=== PATIENT | male | born 1945 | race Caucasian/White ===

== ENCOUNTER 2018-05-24 10:23 | Inpatient (IN) | payer MEDICARE, OTHER | END 2018-05-26 16:10 | disposition home or self-care (01) | LOC: ER 10:23 → ED HOLD 11:49 → ORTHO 4S 17:50 | DX: G90.8 Other disorders of autonomic nervous system (principal); Q21.1 Atrial septal defect; I95.9 Hypotension, unspecified; R56.9 Unspecified convulsions; E11.9 Type 2 diabetes mellitus without complications ==

== ENCOUNTER 2018-12-13 02:53 | Emergency (ER) | payer MEDICARE ==
[~2018-12-13] VITALS: Ht 188 cm; Wt 68.7 kg
[~2018-12-13 02:53] MED LIST: ASCO500C15 PO; FERR324T4 PO
--- NOTE | 2018-12-13 03:21 | NUR ---
WAYLON REYES (FRIEND) IS NAMED SHANEKA HE WILL PICK THE PATIENT UP WHEN/IF D/C HIS PHONE NUMBER IS [phone]
[2018-12-13 03:42] LABS: BASOPHILS # (AUTO) 0.1 X10'3 (0-0.2); BASOPHILS % (AUTO) 0.8 % (0-1); EOSINOPHILS # (AUTO) 0.2 X10'3 (0-0.9); EOSINOPHILS % (AUTO) 2.8 % (0-6); HEMATOCRIT 45.2 % (42.0-52.0); HEMOGLOBIN 15.1 g/dl (14.0-17.9); LYMPHOCYTES # (AUTO) 1.8 X10'3 (1.1-4.8); LYMPHOCYTES % (AUTO) 24.5 % (21-51); MEAN CORPUSCULAR HGB CONC 33.5 g/dL (33.0-36.5); MEAN CORPUSCULAR VOLUME 92.5 FL (78-98); MEAN PLATELET VOLUME 8.6 FL (7.4-10.4); MONOCYTES # (AUTO) 0.8 X10'3 (0-0.9); NEUTROPHILS # (AUTO) 4.5 X10'3 (1.8-7.7); NEUTROPHILS % (AUTO) 60.9 % (42-75); PLATELET COUNT 268 X10'3 (140-440); RED BLOOD COUNT 4.89 X10'6 (4.70-6.10); RED CELL DISTRIBUTION WIDTH 14.9 % (11.5-14.5); WHITE BLOOD COUNT 7.5 X10'3 (4.5-11.0)
[2018-12-13 03:44] LABS: PARTIAL THROMBOPLASTIN TIME 25 SECONDS (22-32)
[2018-12-13 03:46] LABS: ALANINE AMINOTRANSFERASE 29 U/L (12-78); ALBUMIN 3.6 G/DL (3.4-5.0); ALBUMIN/GLOBULIN RATIO 0.9 (1.1-1.5); ALKALINE PHOSPHATASE 81 IU/L (46-116); ANION GAP 8 (8-16); ASPARTATE AMINO TRANSFERASE 22 U/L (10-37); BILIRUBIN,TOTAL 0.4 MG/DL (0.1-1.0); BLOOD UREA NITROGEN 10 MG/DL (7-18); BUN/CREATININE RATIO 13.9 (5.4-32.0); CALCIUM 9.3 MG/DL (8.5-10.1); CHLORIDE 106 MMOL/L (99-107); CREATININE 0.72 MG/DL (0.60-1.10); GLUCOSE 113 MG/DL (70-104); POTASSIUM 3.7 MMOL/L (3.5-5.1); SODIUM 143 MMOL/L (135-145); TOTAL PROTEIN 7.8 G/DL (6.4-8.2); eGFR > 90 ML/MIN
--- NOTE | 2018-12-13 04:14 | NUR ---
PT NOW COMPLAINING OF RUQ PAIN, NO ABD HX THAT HE CAN REMEMBER, LIPASE ORDERED VIA PROTOCOL .
[2018-12-13 04:26] LABS: LIPASE 93 U/L (73-393)
[2018-12-13] MEDS ORDERED: ketorolac trometh. 30mg/ml inj. IV ONE (05:05)
[2018-12-13] MEDS ORDERED: morphine 4 MG/ML inj SYRINge IV ONE (05:05)
[2018-12-13 07:35] LABS: CLARITY,URINE CLEAR (Clear); COLOR,URINE YELLOW (Yellow); GLUCOSE, URINE NEGATIVE (Neg); KETONES,URINE NEGATIVE (Neg); LEUKOCYTE ESTERASE ,URINE NEGATIVE (Neg); NITRITES, URINE NEGATIVE (Neg); OCCULT BLOOD,URINE NEGATIVE (Neg); PROTEIN,URINE NEGATIVE (Neg)
[2018-12-13 07:37] LABS: UA COLLECTION TYPE CLN CATCH MIDSTREAM
[2018-12-13 07:45] LABS: URINE AMPHETAMINE SCREEN NEGATIVE (Neg); URINE BARBITUATE SCREEN NEGATIVE (Neg); URINE BENZODIAZEPINES SCREEN NEGATIVE (Neg); URINE CANNABINOID SCREEN NEGATIVE (Neg); URINE COCAINE SCREEN NEGATIVE (Neg); URINE METHADONE SCREEN NEGATIVE (Neg); URINE OPIATE SCREEN POSITIVE (Neg); URINE PHENCYCLIDINE SCREEN NEGATIVE (Neg)
[2018-12-13 10:10] VITALS: BP 129/74
== END 2018-12-13 10:12 | disposition home or self-care (01) ==
LOC: ER 02:54
DX: R10.11 Right upper quadrant pain (principal); R07.89 Other chest pain; Z86.73 Personal history of transient ischemic attack (TIA), and cerebral infarction without residual deficits; Z87.891 Personal history of nicotine dependence; Z79.899 Other long term (current) drug therapy
CPT/HCPCS: 36415; 71045; 74176; 80053; 80305; 81003; 83690; 84484; 85025; 85610; 85730; 96374; 96375; 99284; J1885; J2270; 93005

== ENCOUNTER 2020-12-09 09:38 | Emergency (ER) | payer MEDICARE, MEDICAID ==
[~2020-12-09] VITALS: Ht 185.4 cm; Wt 80.9 kg
[~2020-12-09 09:38] MED LIST changes: -ASCO500C15 PO; +ASCO500C18 PO
[2020-12-09 09:57] VITALS: BP 140/80
== END 2020-12-09 17:12 | disposition left against medical advice (07) ==
LOC: ER 09:41
DX: K59.00 Constipation, unspecified (principal); Z53.21 Procedure and treatment not carried out due to patient leaving prior to being seen by health care provider

== ENCOUNTER 2020-12-29 07:51 | Inpatient (IN) | payer MEDICARE, MEDICAID ==
[~2020-12-29] VITALS: Ht 190.5 cm; Wt 95.4 kg
[2020-12-29] MEDS ORDERED: adenosine 3mg/ml 2ml vial IV ONE (08:00)
[2020-12-29] MEDS ORDERED: sod chloride 0.9% 10ml flush syringe IV ONE ×2 (08:00)
[2020-12-29] MEDS ORDERED: epiNEPHrine 0.1mg/ml 10ml syringe ONE (08:00)
[2020-12-29] MEDS ORDERED: etomidate 2mg/ml inj. ONE (08:00)
[2020-12-29] MEDS ORDERED: metoprolol tartrate 1mg/ml inj IV ONE (08:00)
[2020-12-29] MEDS ORDERED: rocuronium 10mg/ml inj IV ONE (08:00)
[2020-12-29] MEDS ORDERED: acetaminophen 325mg tablet PO STA (09:57)
[2020-12-29] MEDS ORDERED: ALBUTEROL INHALER 1 PUFF/90 MCG INHALER IH PRN (10:00)
[2020-12-29] MEDS ORDERED: normal saline 1000ML IV soln IV ONE (10:00)
[2020-12-29] MEDS ORDERED: azithromycin/NS 500mg/250ml 250 ML IV ONE (10:00)
[2020-12-29] MEDS ORDERED: CefTRIAXone 2gm/D5W 50ml BAG 50 ML IV ONE (10:00)
[2020-12-29 10:29] LABS: BASOPHILS # (AUTO) 0.1 X10'3 (0-0.2); BASOPHILS % (AUTO) 1.2 % (0-1); EOSINOPHILS % (AUTO) 0.1 % (0-6); HEMATOCRIT 44.2 % (42.0-52.0); HEMOGLOBIN 15.4 g/dl (14.0-17.9); LYMPHOCYTES # (AUTO) 0.5 X10'3 (1.1-4.8); LYMPHOCYTES % (AUTO) 8.9 % (21-51); MEAN CORPUSCULAR HEMOGLOBIN 31.3 PG (27.0-31.0); MEAN CORPUSCULAR HGB CONC 34.8 g/dL (33.0-36.5); MEAN CORPUSCULAR VOLUME 90.1 FL (78-98); MEAN PLATELET VOLUME 8.5 FL (7.4-10.4); MONOCYTES # (AUTO) 0.4 X10'3 (0-0.9); MONOCYTES % (AUTO) 7.5 % (2-12); NEUTROPHILS # (AUTO) 4.4 X10'3 (1.8-7.7); NEUTROPHILS % (AUTO) 82.3 % (42-75); PLATELET COUNT 160 X10'3 (140-440); RED CELL DISTRIBUTION WIDTH 13.3 % (11.5-14.5); WHITE BLOOD COUNT 5.3 X10'3 (4.5-11.0)
[2020-12-29 10:45] LABS: ALANINE AMINOTRANSFERASE 69 U/L (12-78); ALBUMIN 2.8 G/DL (3.4-5.0); ALBUMIN/GLOBULIN RATIO 0.6 (1.1-1.5); ALKALINE PHOSPHATASE 79 IU/L (46-116); ANION GAP 12 (8-16); ASPARTATE AMINO TRANSFERASE 96 U/L (10-37); BILIRUBIN,TOTAL 0.6 MG/DL (0.1-1.0); BLOOD UREA NITROGEN 20 MG/DL (7-18); BUN/CREATININE RATIO 18.7 (5.4-32.0); C-REACTIVE PROTEIN 9.28 MG/DL (0.0-0.5); CALCIUM 8.1 MG/DL (8.5-10.1); CHLORIDE 98 MMOL/L (99-107); CREATININE 1.07 MG/DL (0.60-1.10); GLUCOSE 132 MG/DL (70-104); POTASSIUM 3.3 MMOL/L (3.5-5.1); SODIUM 136 MMOL/L (135-145); TOTAL CARBON DIOXIDE 26.4 MMOL/L (24-32); TOTAL PROTEIN 7.2 G/DL (6.4-8.2); eGFR 67 ML/MIN
[2020-12-29] MEDS ORDERED: REMDESIVIR INJ 200 MG in normal saline 100ml IV soln 60 ML IV ONE (11:20)
[2020-12-29] MEDS ORDERED: enoxaparin 100mg/ml syringe SUBCUT ONE (11:25)
[2020-12-29] MEDS ORDERED: iohexol 350MG/ML 100ml bottle IV ONE (11:32)
[2020-12-29 11:36] LABS: ABG BASE EXCESS -0.1 mmol/L (-2.0-2.0); ABG HCO3 22.3 mmol/L (22.0-26.0); ABG OXYGEN SATURATION 92.1 % (94-97); ABG PO2 (T) 62.1 mmHg (75.0-100.0); ALLEN'S TEST POSITIVE; FCOHb 0.9 % (0.0-3.9); FLOW 6 L/min; FMetHb 0.3 % (0.0-1.5); PATIENT TEMPERATURE 36.7; TOTAL HEMOGLOBIN 14.7 G/dl (14.0-18.0)
[2020-12-29] MEDS ORDERED: mag hydrox/Alum hydrox/simeth 30ml oral suspension PO PRN (12:35)
[2020-12-29] MEDS ORDERED: morphine 2 MG/ML inj. syringe IV PRN (12:35)
[2020-12-29] MEDS ORDERED: ondansetron/PF 4mg/2ml inj IV PRN (12:35)
[2020-12-29] MEDS ORDERED: magnesium hydroxide 30ml (MOM) UD suspension PO PRN (12:35)
[2020-12-29] MEDS ORDERED: acetaminophen 325mg tablet PO PRN (12:35)
[2020-12-29] MEDS ORDERED: NO HOME MEDS PO (14:11)
--- NOTE | 2020-12-29 14:22 | NUR ---
pt was standing in his doorway and had pulled out his IV. stated he wanted to go to the bathroom because he needed to have a bowel movement. pt was given a bedside commode and asked to stay in his room in order not to spread infections. pt agreed and stated he understood.
[2020-12-29] MEDS: dexamethasone inj 6 MG in normal saline 50ml IV soln 50 ML IV SCH ×2 (15:45→21:37)
[2020-12-29 16:08] LABS: UA COLLECTION TYPE URINAL
[2020-12-29 16:10] LABS: COLOR,URINE STRAW (Yellow)
[2020-12-29 16:11] LABS: CLARITY,URINE SLIGHTLY CLOUDY (Clear); GLUCOSE, URINE NEGATIVE (Neg); KETONES,URINE TRACE mg/dl (Neg); NITRITES, URINE NEGATIVE (Neg); OCCULT BLOOD,URINE TRACE-LYSED (Neg); PROTEIN,URINE TRACE mg/dl (Neg)
[2020-12-29 16:12] LABS: LEUKOCYTE ESTERASE ,URINE NEGATIVE (Neg); UROBILINOGEN,URINE 0.2 E.U/dL (0.2-1.0)
[2020-12-29 16:16] LABS: SQUAMOUS EPITHELIAL CELL,UR FEW /LPF (FEW)
[2020-12-29 16:17] LABS: BACTERIA,URINE FEW /HPF (Neg); RBC,URINE 0-2 /HPF (0-2); TRANSITIONAL EPI CELLS,URINE FEW /HPF; WBC,URINE 0-4 /HPF (0-4)
[2020-12-29 16:28] LABS: URINE AMPHETAMINE SCREEN POSITIVE (Neg); URINE BARBITUATE SCREEN NEGATIVE (Neg); URINE BENZODIAZEPINES SCREEN NEGATIVE (Neg); URINE CANNABINOID SCREEN NEGATIVE (Neg); URINE COCAINE SCREEN NEGATIVE (Neg); URINE METHADONE SCREEN NEGATIVE (Neg); URINE OPIATE SCREEN NEGATIVE (Neg); URINE PHENCYCLIDINE SCREEN NEGATIVE (Neg)
[2020-12-29] MEDS: normal saline 1000ml 1,000 ML IV SCH ×2 (16:30→22:35)
--- NOTE | 2020-12-29 17:51 | NUR ---
PT'S DAUGHTER INQUIRING ABOUT PT STATUS. INFORMED THAT PT IS STABLE, BEING ADMITTED TO THE FLOOR AND AWAITING A ROOM. PT'S DAUGHTER CONTACT INFORMATION: GEE Mendoza; Addendum: 12/29/20 at 1754 by SHREYAS PT HAS GIVEN PERMISSION TO GIVE HIS DAUGHTER, GEE Mendoza, INFORMATION REGARDING HIS STATUS.
[2020-12-29] MEDS: docusate sod 100mg capsule PO SCH (21:37)
[2020-12-29] MEDS: enoxaparin 30mg/0.3ml syringe SQ SCH (21:37)
[2020-12-29 22:58] VITALS: BP 104/66
[2020-12-30 06:00] VITALS: BP 113/68
--- NOTE | 2020-12-30 06:33 | NUR ---
Problems reprioritized. Patient report given, questions answered & plan of care reviewed with
--- NOTE | 2020-12-30 06:42 | NUR ---
Patient in room ORTHO 4020B. I have received report from KANDI ASHFORD and had the opportunity to ask questions and assume patient care.
[2020-12-30 08:05] LABS: BASOPHILS % (AUTO) 0.2 % (0-1); EOSINOPHILS % (AUTO) 0 % (0-6); HEMATOCRIT 41.1 % (42.0-52.0); HEMOGLOBIN 14.1 g/dl (14.0-17.9); LYMPHOCYTES # (AUTO) 0.5 X10'3 (1.1-4.8); LYMPHOCYTES % (AUTO) 11.1 % (21-51); MEAN CORPUSCULAR HGB CONC 34.2 g/dL (33.0-36.5); MEAN CORPUSCULAR VOLUME 90.7 FL (78-98); MEAN PLATELET VOLUME 8.9 FL (7.4-10.4); MONOCYTES # (AUTO) 0.3 X10'3 (0-0.9); NEUTROPHILS # (AUTO) 3.7 X10'3 (1.8-7.7); NEUTROPHILS % (AUTO) 81.7 % (42-75); PLATELET COUNT 167 X10'3 (140-440); RED BLOOD COUNT 4.53 X10'6 (4.70-6.10); RED CELL DISTRIBUTION WIDTH 13.5 % (11.5-14.5); WHITE BLOOD COUNT 4.6 X10'3 (4.5-11.0)
[2020-12-30 08:29] LABS: ALBUMIN 2.2 G/DL (3.4-5.0); ANION GAP 12 (8-16); BLOOD UREA NITROGEN 13 MG/DL (7-18); BUN/CREATININE RATIO 20.3 (5.4-32.0); CALCIUM 7.8 MG/DL (8.5-10.1); CHLORIDE 109 MMOL/L (99-107); CREATININE 0.64 MG/DL (0.60-1.10); GLUCOSE 134 MG/DL (70-104); POTASSIUM 3.3 MMOL/L (3.5-5.1); SODIUM 145 MMOL/L (135-145); TOTAL CARBON DIOXIDE 23.6 MMOL/L (24-32); eGFR > 90 ML/MIN
[2020-12-30] MEDS: docusate sod 100mg capsule PO SCH ×2 (09:17→19:35)
[2020-12-30] MEDS: dexamethasone inj 6 MG in normal saline 50ml IV soln 50 ML IV SCH ×2 (09:23→19:36)
[2020-12-30] MEDS: enoxaparin 30mg/0.3ml syringe SQ SCH (09:28)
[2020-12-30] MEDS: REMDESIVIR 100 MG in NS 100ml IVPB IV SCH (09:31)
[2020-12-30 10:00] VITALS: BP 95/45
[2020-12-30] MEDS: normal saline 1000ml 1,000 ML IV SCH ×2 (11:01→19:37)
--- NOTE | 2020-12-30 13:31 | NUR ---
Malnutrition Consult: Pt admit DX COVID-19 bilateral PNA positive for meth per EMR. Pt reports 14-23 lb wt loss however is poor historian per MD note. Pt appears WD/WN per ER note, has no edema, no significant weakness noted, and PO 50% first heart healthy meal this AM. Pt lacks current wt this admit as well as prior wt hx. Does not meet minimum malnutrition criteria at this time; will monitor for nutrition intervention needs this admit. Addendum: 12/30/20 at [address] Amended: Links added.
[2020-12-30 14:00] VITALS: BP 96/62
[2020-12-30] MEDS ORDERED: potassium Cl 20 mEq SR tablet PO PRN (15:35)
[2020-12-30] MEDS ORDERED: potassium Cl 40MEQ/1/2NS 520ml 520 ML IV PRN ×2 (15:35)
[2020-12-30] MEDS: potassium Cl 20 mEq SR tablet PO PRN ×2 (17:12→21:53)
--- NOTE | 2020-12-30 17:35 | NUR ---
Page Sent PAGER ID: [phone] MESSAGE: TONYA [id number]: [id number] HUONG PIENDA...PTS U/S REPORT IS READY
[2020-12-30 18:00] VITALS: BP 101/60
--- NOTE | 2020-12-30 18:38 | NUR ---
Problems reprioritized. Patient report given, questions answered & plan of care reviewed with KANDI SANTOS.
[2020-12-30] MEDS: enoxaparin 80mg/0.8ml syringe SUBCUT SCH (19:36)
[2020-12-30] MEDS: K and/or MAG REPLACEMENT MC SCH (20:00)
[2020-12-30 22:00] VITALS: BP 96/45
[2020-12-31 02:00] VITALS: BP 100/57
[2020-12-31] MEDS: potassium Cl 20 mEq SR tablet PO PRN ×2 (02:21→12:25)
[2020-12-31] MEDS: normal saline 1000ml 1,000 ML IV SCH ×2 (04:40→08:35)
[2020-12-31 06:00] VITALS: BP 109/61
--- NOTE | 2020-12-31 06:49 | NUR ---
Patient in room ORTHO 4020. I have received report from Immanuel CHAU and had the opportunity to ask questions and assume patient care.
[2020-12-31] MEDS: K and/or MAG REPLACEMENT MC SCH ×2 (08:00→20:00)
--- NOTE | 2020-12-31 08:16 | NUR ---
PAGER ID: [phone] MESSAGE: re: [id number], Nathan Mitchell Pt continuously taking O2 off desats down to 67-80% despite reeducation, and trying to get OOB and pull at lines. May I have order for sitter. Thank you, Shaina [phone] electric plater aware. Michel Lovett aware. Will continue to monitor.
[2020-12-31] MEDS: docusate sod 100mg capsule PO SCH ×2 (08:32→20:19)
[2020-12-31] MEDS: enoxaparin 80mg/0.8ml syringe SUBCUT SCH ×2 (08:33→20:19)
[2020-12-31] MEDS: dexamethasone inj 6 MG in normal saline 50ml IV soln 50 ML IV SCH ×2 (08:33→20:19)
[2020-12-31 08:35] LABS: BASOPHILS % (AUTO) 0.1 % (0-1); EOSINOPHILS % (AUTO) 0 % (0-6); HEMOGLOBIN 13.6 g/dl (14.0-17.9); LYMPHOCYTES # (AUTO) 0.6 X10'3 (1.1-4.8); LYMPHOCYTES % (AUTO) 6.9 % (21-51); MEAN CORPUSCULAR HEMOGLOBIN 31.3 PG (27.0-31.0); MEAN CORPUSCULAR HGB CONC 34.9 g/dL (33.0-36.5); MEAN CORPUSCULAR VOLUME 89.7 FL (78-98); MONOCYTES # (AUTO) 0.6 X10'3 (0-0.9); MONOCYTES % (AUTO) 6.4 % (2-12); NEUTROPHILS # (AUTO) 7.6 X10'3 (1.8-7.7); NEUTROPHILS % (AUTO) 86.6 % (42-75); PLATELET COUNT 222 X10'3 (140-440); RED BLOOD COUNT 4.35 X10'6 (4.70-6.10); RED CELL DISTRIBUTION WIDTH 13.7 % (11.5-14.5); WHITE BLOOD COUNT 8.8 X10'3 (4.5-11.0)
[2020-12-31 09:03] LABS: ANION GAP 12 (8-16); BLOOD UREA NITROGEN 12 MG/DL (7-18); BUN/CREATININE RATIO 22.6 (5.4-32.0); CALCIUM 7.5 MG/DL (8.5-10.1); CHLORIDE 111 MMOL/L (99-107); CREATININE 0.53 MG/DL (0.60-1.10); GLUCOSE 144 MG/DL (70-104); POTASSIUM 3.3 MMOL/L (3.5-5.1); SODIUM 146 MMOL/L (135-145); TOTAL CARBON DIOXIDE 22.7 MMOL/L (24-32); eGFR > 90 ML/MIN
[2020-12-31] MEDS: REMDESIVIR 100 MG in NS 100ml IVPB IV SCH (09:33)
[2020-12-31 10:00] VITALS: BP 110/42
--- NOTE | 2020-12-31 12:35 | NUR ---
Pt refusing to take PO Potassium for replacement of 3.3 K+. Will replace per PIV. Will continue to monitor.
--- NOTE | 2020-12-31 14:57 | NUR ---
Phoned pharmacy, still waiting for IV K+ for replacement. They will send up. Will continue to monitor.
[2020-12-31 18:00] VITALS: BP 101/56
--- NOTE | 2020-12-31 18:38 | NUR ---
Problems reprioritized. Patient report given, questions answered & plan of care reviewed with Oliva CHAU.
--- NOTE | 2020-12-31 18:40 | NUR ---
Patient in room ORTHO 4020. I have received report from KANDI MACK and had the opportunity to ask questions and assume patient care.
[2020-12-31 22:00] VITALS: BP 103/50
[2021-01-01] MEDS: normal saline 1000ml 1,000 ML IV SCH ×3 (00:35→14:34)
[2021-01-01 02:00] VITALS: BP 101/57
[2021-01-01 06:30] VITALS: BP 110/47
--- NOTE | 2021-01-01 06:31 | NUR ---
Problems reprioritized. Patient report given, questions answered & plan of care reviewed with lupe Alvarenga.
[2021-01-01 07:39] LABS: GLUCOSE 144 MG/DL (70-104); POTASSIUM 3.6 MMOL/L (3.5-5.1); SODIUM 147 MMOL/L (135-145)
[2021-01-01 07:40] LABS: ALBUMIN 2.2 G/DL (3.4-5.0); ANION GAP 7 (8-16); BLOOD UREA NITROGEN 13 MG/DL (7-18); BUN/CREATININE RATIO 21.7 (5.4-32.0); CALCIUM 7.5 MG/DL (8.5-10.1); CHLORIDE 111 MMOL/L (99-107); TOTAL CARBON DIOXIDE 28.7 MMOL/L (24-32); eGFR > 90 ML/MIN
[2021-01-01] MEDS: enoxaparin 80mg/0.8ml syringe SUBCUT SCH ×2 (07:42→20:55)
[2021-01-01] MEDS: docusate sod 100mg capsule PO SCH ×2 (07:42→20:00)
[2021-01-01] MEDS: dexamethasone inj 6 MG in normal saline 50ml IV soln 50 ML IV SCH ×2 (07:43→20:55)
[2021-01-01 07:44] LABS: BASOPHILS % (AUTO) 0 % (0-1); EOSINOPHILS % (AUTO) 0 % (0-6); HEMATOCRIT 43.5 % (42.0-52.0); HEMOGLOBIN 14.4 g/dl (14.0-17.9); LYMPHOCYTES # (AUTO) 0.4 X10'3 (1.1-4.8); LYMPHOCYTES % (AUTO) 3.4 % (21-51); MEAN CORPUSCULAR HEMOGLOBIN 30.7 PG (27.0-31.0); MEAN CORPUSCULAR HGB CONC 33.1 g/dL (33.0-36.5); MEAN CORPUSCULAR VOLUME 92.7 FL (78-98); MEAN PLATELET VOLUME 8.8 FL (7.4-10.4); MONOCYTES # (AUTO) 0.7 X10'3 (0-0.9); NEUTROPHILS # (AUTO) 10.3 X10'3 (1.8-7.7); NEUTROPHILS % (AUTO) 90.6 % (42-75); PLATELET COUNT 256 X10'3 (140-440); RED BLOOD COUNT 4.69 X10'6 (4.70-6.10); RED CELL DISTRIBUTION WIDTH 13.7 % (11.5-14.5); WHITE BLOOD COUNT 11.4 X10'3 (4.5-11.0)
[2021-01-01] MEDS: K and/or MAG REPLACEMENT MC SCH ×2 (08:00→19:14)
--- NOTE | 2021-01-01 08:03 | NUR ---
PAGER ID: [phone] MESSAGE: [id number] Ismael Mitchell: very agitated/anxious keeps trying to pull o2 off. has no anxiety meds ordered..would you like me to give anything? thanks! shayna [phone]
[2021-01-01] MEDS: LORazepam 2 mg/ml vial IV PRN ×4 (08:40→20:33)
[2021-01-01] MEDS: REMDESIVIR 100 MG in NS 100ml IVPB IV SCH (08:43)
[2021-01-01 09:47] VITALS: BP 125/65
[2021-01-01] MEDS: morphine 2 MG/ML inj. syringe IV PRN ×2 (14:33→20:44)
[2021-01-01 15:00] VITALS: BP 120/68
--- NOTE | 2021-01-01 15:06 | NUR ---
PAGER ID: [phone] MESSAGE: [id number] Ismael Mitchell: patient still very agitated. keeps pulling o2 off and trying to get out of bed despite sitter at bedside. would you like restraints temporarily until he calms? thanks! shayna [phone]
[2021-01-01 18:00] VITALS: BP 110/62
--- NOTE | 2021-01-01 18:21 | NUR ---
Problems reprioritized. Patient report given, questions answered & plan of care reviewed with KANDI Cook.
--- NOTE | 2021-01-01 18:22 | NUR ---
Patient in room ORTHO 4020. I have received report from Cate CHAU and had the opportunity to ask questions and assume patient care.
--- NOTE | 2021-01-01 20:48 | NUR ---
Pt became combative & trying to pull off his oxygen mask, pt's sat in the 70's. Ativan & morphine were given. Called to Dr. Tay for all extremities restraint order.
--- NOTE | 2021-01-01 20:50 | NUR ---
had been called because pt. did not calmed down after Ativan 0.5 and Morphine 2 mg. gave order for Haldol 2mg.one time order.We will continue with pt. care.
[2021-01-01] MEDS ORDERED: haloperidol lactate 5mg/ml inj IM ONE (20:55)
[2021-01-01 22:00] VITALS: BP 115/62
[2021-01-02] VITALS (8 sets, daily range): BP systolic 71–131; BP diastolic 43–75
[2021-01-02] MEDS: LORazepam 2 mg/ml vial IV PRN ×6 (00:04→18:49)
[2021-01-02] MEDS: normal saline 1000ml 1,000 ML IV SCH ×3 (00:29→19:45)
[2021-01-02] MEDS: morphine 2 MG/ML inj. syringe IV PRN ×4 (00:30→15:11)
--- NOTE | 2021-01-02 03:10 | NUR ---
Call to Dr. Tay for an order of Ativan 1ml q1h.
[2021-01-02] MEDS ORDERED: LORazepam 2 mg/ml vial IV PRN ×2 (03:15→04:15)
--- NOTE | 2021-01-02 03:30 | NUR ---
Called a rapid response regarding to pt's sat of 60%.
--- NOTE | 2021-01-02 04:44 | NUR ---
Pt is currently resting comfortably. Bipap/cpap setting 100% 40L
--- NOTE | 2021-01-02 06:30 | NUR ---
Patient in room ORTHO 4020. I have received report from KANDI Cook and had the opportunity to ask questions and assume patient care.
--- NOTE | 2021-01-02 06:40 | NUR ---
Problems reprioritized. Patient report given, questions answered & plan of care reviewed with Sara RN at bedside.
[2021-01-02] MEDS: REMDESIVIR 100 MG in NS 100ml IVPB IV SCH (07:48)
[2021-01-02] MEDS: dexamethasone inj 6 MG in normal saline 50ml IV soln 50 ML IV SCH (07:48)
[2021-01-02] MEDS: enoxaparin 80mg/0.8ml syringe SUBCUT SCH ×2 (07:49→20:00)
[2021-01-02] MEDS: docusate sod 100mg capsule PO SCH ×2 (07:49→20:00)
[2021-01-02] MEDS ORDERED: bisacodyl 10mg suppository rectal RC PRN (07:50)
[2021-01-02] MEDS: K and/or MAG REPLACEMENT MC SCH ×2 (08:00→20:00)
[2021-01-02 08:01] LABS: BASOPHILS % (AUTO) 0.1 % (0-1); EOSINOPHILS % (AUTO) 0 % (0-6); HEMATOCRIT 43.9 % (42.0-52.0); HEMOGLOBIN 14.3 g/dl (14.0-17.9); LYMPHOCYTES # (AUTO) 0.5 X10'3 (1.1-4.8); LYMPHOCYTES % (AUTO) 3.7 % (21-51); MEAN CORPUSCULAR HEMOGLOBIN 30.4 PG (27.0-31.0); MEAN CORPUSCULAR HGB CONC 32.6 g/dL (33.0-36.5); MEAN PLATELET VOLUME 8.5 FL (7.4-10.4); MONOCYTES # (AUTO) 0.7 X10'3 (0-0.9); MONOCYTES % (AUTO) 5.8 % (2-12); NEUTROPHILS # (AUTO) 11.4 X10'3 (1.8-7.7); NEUTROPHILS % (AUTO) 90.4 % (42-75); PLATELET COUNT 252 X10'3 (140-440); RED BLOOD COUNT 4.72 X10'6 (4.70-6.10); RED CELL DISTRIBUTION WIDTH 13.2 % (11.5-14.5); WHITE BLOOD COUNT 12.6 X10'3 (4.5-11.0)
[2021-01-02 08:22] LABS: ALBUMIN 2.3 G/DL (3.4-5.0); ANION GAP 12 (8-16); BLOOD UREA NITROGEN 12 MG/DL (7-18); BUN/CREATININE RATIO 21.1 (5.4-32.0); C-REACTIVE PROTEIN 2.87 MG/DL (0.0-0.5); CALCIUM 7.6 MG/DL (8.5-10.1); CHLORIDE 110 MMOL/L (99-107); CREATININE 0.57 MG/DL (0.60-1.10); GLUCOSE 106 MG/DL (70-104); POTASSIUM 3.6 MMOL/L (3.5-5.1); SODIUM 149 MMOL/L (135-145); TOTAL CARBON DIOXIDE 26.9 MMOL/L (24-32); eGFR > 90 ML/MIN
[2021-01-02] MEDS: nystatin 15 GM powder TP SCH ×2 (09:27→21:56)
--- NOTE | 2021-01-02 13:45 | NUR ---
Initial: Pt admit for acute respiratory failure with hypoxia and COVID-19 bilat PNA. Pt initially on a heart healthy diet and eating relatively well with average 64% PO intake the first six meals however average PO intake throughout LOS is 41%, not meeting estimated nutrient needs. Pt s/p BSS 01/[address] recs pureed food with thin liquids and pt with 25-50% PO intake following texture modification. Recommend Ensure Enlive TIDWM to optimize nutrient intake, to be sent pending physician approval in EMR. Noted patient started on NS at 100 mL/hr on 12/29 and patients serum Na continues to trend up, currently elevated at 149 MMOL/L. Recommend discontinuing NS in view of trend in serum Na, d/w RN. LBM 12/30, receiving routine bowel care and received PRN Dulcolax suppository today. Will continue to follow closely and monitor need for further nutrition intervention. Recommendations: 1) Continue pureed food with thin liquids per ST recs; consider discontinuing heart healthy diet and liberalizing to regular diet in view of poor PO intake 2) Ensure Enlive TIDWM, pending physician approval in EMR 3) Routine bowel care 4) Scaled weight this admit; weekly scaled weights thereafter Addendum: 01/02/21 at [address] Amended: Links added.
[2021-01-02 15:59] LABS: ABG BASE EXCESS 0.2 mmol/L (-2.0-2.0); ABG HCO3 22.4 mmol/L (22.0-26.0); ABG PCO2 (T) 29.8 mmHg (35.0-48.0); ABG PO2 (T) 49.3 mmHg (75.0-100.0); ALLEN'S TEST POSITIVE; FCOHb 0.6 % (0.0-3.9); FMetHb 0.3 % (0.0-1.5); FO2Hb 86.2 % (94-97); RESPIRATORY RATE 16 b/min; TOTAL HEMOGLOBIN 14.6 G/dl (14.0-18.0)
[2021-01-02] MEDS ORDERED: methylPREDNISolone sod succ 125mg/2ml vial IV ONE (16:15)
[2021-01-02 17:46] LABS: ABG BASE EXCESS -0.3 mmol/L (-2.0-2.0); ABG HCO3 21.9 mmol/L (22.0-26.0); ABG OXYGEN SATURATION 87.4 % (94-97); ABG PO2 (T) 51.5 mmHg (75.0-100.0); ALLEN'S TEST POSITIVE; FCOHb 0.6 % (0.0-3.9); FMetHb 0.3 % (0.0-1.5); FO2Hb 86.6 % (94-97); PATIENT TEMPERATURE 36.8; RESPIRATORY RATE 16 b/min; TOTAL HEMOGLOBIN 14.3 G/dl (14.0-18.0)
[2021-01-02] MEDS: lactose-reduced food (Ensure Enlive) - 237ml bottle PO SCH (18:00)
--- NOTE | 2021-01-02 18:30 | NUR ---
Problems reprioritized. Patient report given, questions answered & plan of care reviewed with KANDI Caal.
[2021-01-02] MEDS ORDERED: midazolam 1 mg/ML 2ml injection ONE (19:04)
--- NOTE | 2021-01-02 19:04 | NUR ---
ASSUMED CARE OF PATIENT WITH VERBAL REPORT FROM CASS RN. PATIENT TO BE TRANSFERRED TO ICU AFTER SHIFT CHANGE RAPID WAS CALLED PRIOR TO END OF EARLY SHIFT. 1845 PATIENT IN DISTRESS, RESP RATE AT 42, PATIENT THRASHING IN BED, ATIVAN 2MG GIVEN IVP AND PATIENT SLOWLY REGAINED RESP RATE OF 31 AND SATS UP FROM [address] TRUJILLO HERE AND WANTS PATIENT TRANSFERRED IMMEDIATELY, METAL CASTING TRADES WORKER. HERE, PATIENT TRANSFERRED WITH BELONGINGS AT 1900. CLOTHING ITEMS, WALLET AND CELLPHONE WITH PATIENT.
--- NOTE | 2021-01-02 19:15 | NUR ---
Problems reprioritized. Patient report given, questions answered & plan of care reviewed with JOLLY Zhong RN.
[2021-01-02] MEDS ORDERED: acetaminophen 325mg tablet PO PRN ×3 (19:20→19:45)
[2021-01-02] MEDS ORDERED: morphine 4 MG/ML inj SYRINge IV PRN (19:20)
[2021-01-02] MEDS ORDERED: LIDOcaine 2% 10ml TOPICAL JELLY (Urojet) TP ONE ×2 (19:20→19:45)
[2021-01-02] MEDS ORDERED: morphine 2 MG/ML inj. syringe IV PRN (19:20)
[2021-01-02] MEDS ORDERED: magnesium 2GM in 50ml NS 50 ML IV PRN (19:45)
[2021-01-02] MEDS ORDERED: sodium phosphate inj. 15 MMOL in dextrose 5%-water 250 ML IV PRN (19:45)
[2021-01-02] MEDS ORDERED: magnesium Cl slow-release 64mg tablet PO PRN (19:45)
[2021-01-02] MEDS ORDERED: ipratropium/albuterol 3ml nebule NEB PRN (19:45)
[2021-01-02] MEDS ORDERED: ondansetron/PF 4mg/2ml inj IV PRN (19:45)
[2021-01-02] MEDS ORDERED: magnesium hydroxide 30ml (MOM) UD suspension PO PRN (19:45)
[2021-01-02] MEDS ORDERED: magnesium 4gm in 100ml NS 100 ML IV PRN (19:45)
[2021-01-02] MEDS ORDERED: sodium phosphate inj. 30 MMOL in dextrose 5%-water 250 ML IV PRN (19:45)
[2021-01-02] MEDS ORDERED: Neutra Phos packet PO PRN (19:45)
[2021-01-02] MEDS ORDERED: rocuronium 10mg/ml inj IV ONE (19:55)
[2021-01-02] MEDS ORDERED: etomidate 2mg/ml inj. IV ONE (19:55)
[2021-01-02] MEDS: methylPREDNISolone sod succ/PF 40mg inj. IV SCH (20:00)
[2021-01-02] MEDS ORDERED: vancomycin/NS 1 GM ADD-VANTAGE 250 ML IV SCH (20:15)
[2021-01-02] MEDS: propofol 1000mg/100ml bottle 100 ML IV SCH (20:18)
[2021-01-02] MEDS: FENTANYL-0.9 % NACL/PF 100 ML IV SCH (20:19)
[2021-01-02 20:24] LABS: LACTIC SEPSIS 1.8 MMOL/L (0.4-2.0)
[2021-01-02 20:46] LABS: ABG BASE EXCESS -1.8 mmol/L (-2.0-2.0); ABG HCO3 23.9 mmol/L (22.0-26.0); ABG OXYGEN SATURATION 98.6 % (94-97); ABG PCO2 (T) 43.7 mmHg (35.0-48.0); ABG PO2 (T) 151.7 mmHg (75.0-100.0); ALLEN'S TEST POSITIVE; FCOHb 0.1 % (0.0-3.9); FMetHb 0.1 % (0.0-1.5); FO2Hb 98.4 % (94-97); PEEP 12 cm H2O; RESPIRATORY RATE 16 b/min; TIDAL VOLUME 450 mL; TOTAL HEMOGLOBIN 14.5 G/dl (14.0-18.0)
[2021-01-02] MEDS ORDERED: sennosides/docusate sodium tablet PO SCH (21:00)
[2021-01-02] MEDS ORDERED: NORepinephrine 8mg/ 250ml NS 250 ML IV ONE (21:56)
[2021-01-03] VITALS (24 sets, daily range): BP systolic 68–146; BP diastolic 31–91
[2021-01-03] MEDS: FENTANYL-0.9 % NACL/PF 100 ML IV SCH ×6 (00:38→20:48)
[2021-01-03] MEDS: propofol 1000mg/100ml bottle 100 ML IV SCH ×4 (00:53→22:42)
[2021-01-03] MEDS: methylPREDNISolone sod succ/PF 40mg inj. IV SCH ×4 (02:00→20:49)
[2021-01-03 03:48] LABS: ABG BASE EXCESS -2.1 mmol/L (-2.0-2.0); ABG HCO3 23.6 mmol/L (22.0-26.0); ABG OXYGEN SATURATION 96.7 % (94-97); ABG PCO2 (T) 43.8 mmHg (35.0-48.0); ABG PO2 (T) 97.5 mmHg (75.0-100.0); FCOHb 0.5 % (0.0-3.9); FO2Hb 96.2 % (94-97); PATIENT TEMPERATURE 36.9; PEEP 12 cm H2O; RESPIRATORY RATE 16 b/min; TIDAL VOLUME 450 mL; TOTAL HEMOGLOBIN 14.4 G/dl (14.0-18.0)
[2021-01-03 04:06] LABS: BASOPHILS % (AUTO) 0.2 % (0-1); EOSINOPHILS % (AUTO) 0 % (0-6); HEMOGLOBIN 13.5 g/dl (14.0-17.9); LYMPHOCYTES # (AUTO) 0.4 X10'3 (1.1-4.8); LYMPHOCYTES % (AUTO) 2.4 % (21-51); MEAN CORPUSCULAR HEMOGLOBIN 30.3 PG (27.0-31.0); MEAN CORPUSCULAR HGB CONC 32.3 g/dL (33.0-36.5); MEAN CORPUSCULAR VOLUME 93.9 FL (78-98); MEAN PLATELET VOLUME 9.6 FL (7.4-10.4); MONOCYTES # (AUTO) 0.7 X10'3 (0-0.9); MONOCYTES % (AUTO) 4.3 % (2-12); NEUTROPHILS # (AUTO) 15.8 X10'3 (1.8-7.7); NEUTROPHILS % (AUTO) 93.1 % (42-75); PLATELET COUNT 237 X10'3 (140-440); RED BLOOD COUNT 4.47 X10'6 (4.70-6.10); RED CELL DISTRIBUTION WIDTH 13.9 % (11.5-14.5)
[2021-01-03 04:18] LABS: PARTIAL THROMBOPLASTIN TIME 29 SECONDS (22-32)
[2021-01-03 04:27] LABS: GLUCOSE 162 MG/DL (70-104); SODIUM 152 MMOL/L (135-145)
[2021-01-03 04:28] LABS: ALANINE AMINOTRANSFERASE 74 U/L (12-78); ALBUMIN/GLOBULIN RATIO 0.6 (1.1-1.5); ALKALINE PHOSPHATASE 60 IU/L (46-116); ANION GAP 12 (8-16); ASPARTATE AMINO TRANSFERASE 54 U/L (10-37); BLOOD UREA NITROGEN 16 MG/DL (7-18); BUN/CREATININE RATIO 25.4 (5.4-32.0); C-REACTIVE PROTEIN 7.75 MG/DL (0.0-0.5); CALCIUM 7.6 MG/DL (8.5-10.1); CHLORIDE 114 MMOL/L (99-107); CREATININE 0.63 MG/DL (0.60-1.10); MAGNESIUM 2.1 MG/DL (1.5-2.4); PHOSPHORUS 4.2 MG/DL (2.3-4.5); POTASSIUM 3.4 MMOL/L (3.5-5.1); TOTAL CARBON DIOXIDE 26.2 MMOL/L (24-32); TOTAL PROTEIN 5.6 G/DL (6.4-8.2); TRIGLYCERIDES 59 MG/DL (20-135); eGFR > 90 ML/MIN
[2021-01-03 04:50] LABS: D-DIMER 3.99 MG/L FEU (0-0.50)
[2021-01-03] MEDS: pantoprazole 40 MG vial IV SCH (07:38)
[2021-01-03] MEDS: normal saline 1000ml 1,000 ML IV SCH ×2 (07:39→22:25)
[2021-01-03] MEDS: enoxaparin 80mg/0.8ml syringe SUBCUT SCH ×2 (07:39→20:53)
[2021-01-03] MEDS: nystatin 15 GM powder TP SCH ×2 (07:39→20:53)
[2021-01-03] MEDS: cefepime 1GM in D5W 50mL 50 ML IV SCH ×3 (07:39→15:55)
[2021-01-03] MEDS: docusate sod 100mg capsule PO SCH (07:40)
[2021-01-03] MEDS: K and/or MAG REPLACEMENT MC SCH (08:00)
[2021-01-03] MEDS: lactose-reduced food (Ensure Enlive) - 237ml bottle PO SCH (08:00)
[2021-01-03] MEDS: vancomycin/NS 1 GM ADD-VANTAGE 250 ML X 1 DOSE IV SCH ×2 (08:14→20:50)
[2021-01-03] MEDS ORDERED: potassium Cl 20mEq/100mL bag 100 ML IV ONE (08:23)
[2021-01-03] MEDS ORDERED: magnesium 1 GM/2 ML inj ONE (08:23)
[2021-01-03] MEDS ORDERED: metoprolol tartrate 1mg/ml inj IV STA (10:24)
[2021-01-03] MEDS ORDERED: adenosine 3mg/ml 2ml vial IV ONE ×2 (10:25)
--- NOTE | 2021-01-03 10:29 | NUR ---
at approx 0821 pt went into SVT in the rate of 220's. md at bedside. pt medicated with 6mg adenosine with no effect. 12 mg given with no effect then a second 12 mg of adenosine given with no effect. metoprolol 5 mg ordered and given heart dropped to 130's. pt maintained a blood pressure throught incident. svt lasted approx 10 minutes.
--- NOTE | 2021-01-03 11:02 | NUR ---
TF consult: Pt required intubation d/t respiratory failure per MD note. Of note pt currently receiving Propofol at 17.182 mL/hr providing roughly 453 kcal/day. TF recommendations were calculated to meet estimated nutrient needs with current Propofol rate so recommendations may need to be adjusted further if Propofol rate to change. IBW was used to calculate estimated nutrient needs as current documented wt isn't scaled. Noted pt with a low Lino of 12, no edema or wounds per physical assessment. LBM 01/02, with routine bowel care available with additional PRN bowel care available. Will continue to follow closely. Recommendations: 1) Continuous TF via OGT using Vital AF with 75 mL/hr goal rate to provide 1800 mL total volume/day, 2160 kcal, 135 g protein, and 1460 mL water. Will meet patient's estimated nutrient needs with Propofol at 17.182 mL/hr 2) Monitor for scaled weight and adjustments in Propofol rate and adjust TF recommendations as appropriate 3) Additional 200 mL water flush Q4H; monitor serum Na and need to adjust 4) Prealbumin q Tuesday/ 5) Daily scaled weights 6) Routine bowel care 7) BSS with ST prior to PO diet advancement following extubation; previously on pureed food with thin liquids per ST 01/01; recommend regular diet in view of poor PO intake hx Addendum: 01/03/21 at [address] Amended: Links added.
[2021-01-03] MEDS ORDERED: NORepinephrine 8mg/ 250ml NS 250 ML IV ONE (11:11)
--- NOTE | 2021-01-03 12:48 | NUR ---
ng placed on first attempt. positive gastric contents on aspiration and air instillation
[2021-01-03] MEDS ORDERED: mag hydrox/Alum hydrox/simeth 30ml oral suspension OGT PRN (14:20)
[2021-01-03] MEDS ORDERED: Neutra Phos packet OGT PRN (14:21)
[2021-01-03] MEDS ORDERED: magnesium hydroxide 30ml (MOM) UD suspension OGT PRN (14:21)
[2021-01-03] MEDS ORDERED: dextrose ORAL solution 15 GM/59 ML bottle PO PRN ×2 (14:30)
[2021-01-03] MEDS ORDERED: MESSAGE TO PHARMACY PO ONE (14:30)
[2021-01-03] MEDS ORDERED: dextrose 50%-water 50ml dispensing syringe IV PRN ×2 (14:30)
[2021-01-03] MEDS ORDERED: glucagon, human recombinant 1mg kit SUBCUT PRN (14:30)
[2021-01-03 15:10] LABS: HEMOGLOBIN A1C 6.5 % (4.5-6.2)
[2021-01-03] MEDS: NORepinephrine 8mg/ 250ml NS 250 ML IV SCH (18:04)
[2021-01-03] MEDS: docusate sodium 100mg/10ml UD cup OGT SCH (20:49)
[2021-01-03] MEDS: sennosides/docusate sodium tablet OGT SCH (20:49)
[2021-01-03] MEDS: mineral oil/petrolatum ophthal oint EACHEYE SCH (20:53)
[2021-01-03] MEDS: lactobacillus rhamnosus 10,000 MMU CELLS/CAPSULE OGT SCH (20:53)
[2021-01-03] MEDS: insulin glargine (Lantus) pen - multi-dose SQ SCH (22:19)
[2021-01-03] MEDS: insulin regular, human U-100 3ml vial - multi-dose SQ SCH (22:22)
[2021-01-04] VITALS (24 sets, daily range): BP systolic 88–118; BP diastolic 56–73
[2021-01-04] MEDS: FENTANYL-0.9 % NACL/PF 100 ML IV SCH ×3 (01:01→16:15)
[2021-01-04] MEDS: methylPREDNISolone sod succ/PF 40mg inj. IV SCH ×4 (01:50→20:39)
[2021-01-04] MEDS: mineral oil/petrolatum ophthal oint EACHEYE SCH ×4 (01:50→20:39)
[2021-01-04 03:05] LABS: PARTIAL THROMBOPLASTIN TIME 27 SECONDS (22-32)
[2021-01-04 03:14] LABS: ALBUMIN 1.9 G/DL (3.4-5.0); ALBUMIN/GLOBULIN RATIO 0.5 (1.1-1.5); ANION GAP 7 (8-16); BILIRUBIN,TOTAL 0.5 MG/DL (0.1-1.0); BLOOD UREA NITROGEN 17 MG/DL (7-18); BUN/CREATININE RATIO 22.4 (5.4-32.0); CALCIUM 7.9 MG/DL (8.5-10.1); CHLORIDE 116 MMOL/L (99-107); CREATININE 0.76 MG/DL (0.60-1.10); GLUCOSE 275 MG/DL (70-104); MAGNESIUM 2.3 MG/DL (1.5-2.4); PHOSPHORUS 2.9 MG/DL (2.3-4.5); SODIUM 152 MMOL/L (135-145); TOTAL CARBON DIOXIDE 29.3 MMOL/L (24-32); TOTAL PROTEIN 5.8 G/DL (6.4-8.2); eGFR > 90 ML/MIN
[2021-01-04 03:15] LABS: ALANINE AMINOTRANSFERASE 61 U/L (12-78); ALKALINE PHOSPHATASE 55 IU/L (46-116); ASPARTATE AMINO TRANSFERASE 22 U/L (10-37)
[2021-01-04] MEDS: insulin regular, human U-100 3ml vial - multi-dose SQ SCH ×4 (03:36→21:01)
[2021-01-04 04:16] LABS: ABG BASE EXCESS 2.5 mmol/L (-2.0-2.0); ABG HCO3 30.1 mmol/L (22.0-26.0); ABG OXYGEN SATURATION 95.4 % (94-97); ABG PCO2 (T) 57.7 mmHg (35.0-48.0); ABG PO2 (T) 78.9 mmHg (75.0-100.0); ALLEN'S TEST Modified; FCOHb 0.3 % (0.0-3.9); FO2Hb 95.1 % (94-97); PATIENT TEMPERATURE 36.5; PEEP 8 cm H2O; RESPIRATORY RATE 16 b/min; TIDAL VOLUME 450 mL; TOTAL HEMOGLOBIN 14.8 G/dl (14.0-18.0)
--- NOTE | 2021-01-04 06:16 | NUR ---
Bedside shift report given to KANDI Tillman.
[2021-01-04] MEDS ORDERED: VANCOMYCIN LEVEL IV ONE ×2 (07:30→19:30)
[2021-01-04] MEDS: pantoprazole 40 MG vial IV SCH (07:38)
[2021-01-04] MEDS: docusate sodium 100mg/10ml UD cup OGT SCH ×2 (07:38→20:37)
[2021-01-04] MEDS: enoxaparin 80mg/0.8ml syringe SUBCUT SCH ×2 (07:39→20:38)
[2021-01-04] MEDS: lactobacillus rhamnosus 10,000 MMU CELLS/CAPSULE OGT SCH ×2 (07:39→20:37)
[2021-01-04] MEDS: cefepime 1GM in D5W 50mL 50 ML IV SCH ×3 (07:48→16:14)
[2021-01-04] MEDS: K and/or MAG REPLACEMENT MC SCH ×2 (08:00→20:00)
[2021-01-04] MEDS: nystatin 15 GM powder TP SCH ×2 (08:00→20:38)
[2021-01-04] MEDS: propofol 1000mg/100ml bottle 100 ML IV SCH ×3 (08:25→22:43)
[2021-01-04] MEDS: vancomycin/NS 1 GM ADD-VANTAGE 250 ML X 1 DOSE IV SCH ×2 (08:54→20:38)
[2021-01-04] MEDS: NORepinephrine 8mg/ 250ml NS 250 ML IV SCH ×2 (11:01→19:22)
--- NOTE | 2021-01-04 11:44 | NUR ---
Problems reprioritized. Patient report given, questions answered & plan of care reviewed with KANDI Melgar.
[2021-01-04] MEDS: normal saline 1000ml 1,000 ML IV SCH (11:45)
[2021-01-04] MEDS: acetaminophen 325mg tablet OGT PRN (12:42)
[2021-01-04 14:56] LABS: CLARITY,URINE SLIGHTLY CLOUDY (Clear); COLOR,URINE YELLOW (Yellow); GLUCOSE, URINE NEGATIVE (Neg); KETONES,URINE NEGATIVE (Neg); UA COLLECTION TYPE NON-SPECIFIED
[2021-01-04 14:57] LABS: LEUKOCYTE ESTERASE ,URINE NEGATIVE (Neg); NITRITES, URINE NEGATIVE (Neg); OCCULT BLOOD,URINE TRACE-INTACT (Neg); UROBILINOGEN,URINE 0.2 E.U/dL (0.2-1.0)
[2021-01-04 15:07] LABS: PROTEIN,URINE TRACE mg/dl (Neg)
[2021-01-04 15:08] LABS: BACTERIA,URINE NONE SEEN /HPF (Neg); RBC,URINE 0-2 /HPF (0-2); SQUAMOUS EPITHELIAL CELL,UR FEW /LPF (FEW); WBC,URINE NONE SEEN /HPF (0-4)
[2021-01-04] MEDS ORDERED: bisacodyl 10mg suppository rectal RC PRN (19:45)
[2021-01-04] MEDS: sennosides/docusate sodium tablet OGT SCH (20:38)
[2021-01-04] MEDS: insulin glargine (Lantus) pen - multi-dose SQ SCH (21:00)
[2021-01-05] VITALS (23 sets, daily range): BP systolic 70–121; BP diastolic 34–73
[2021-01-05] MEDS: cefepime 1GM in D5W 50mL 50 ML IV SCH ×2 (00:18→08:12)
[2021-01-05] MEDS: normal saline 1000ml 1,000 ML IV SCH ×2 (00:19→14:25)
[2021-01-05] MEDS: FENTANYL-0.9 % NACL/PF 100 ML IV SCH ×8 (00:20→23:15)
[2021-01-05] MEDS: mineral oil/petrolatum ophthal oint EACHEYE SCH ×4 (02:00→20:12)
[2021-01-05] MEDS: methylPREDNISolone sod succ/PF 40mg inj. IV SCH ×4 (02:00→20:14)
[2021-01-05] MEDS: insulin regular, human U-100 3ml vial - multi-dose SQ SCH ×4 (03:08→22:10)
[2021-01-05 03:12] LABS: ABG BASE EXCESS 6.6 mmol/L (-2.0-2.0); ABG HCO3 34.3 mmol/L (22.0-26.0); ABG OXYGEN SATURATION 94.9 % (94-97); ABG PO2 (T) 83.3 mmHg (75.0-100.0); ALLEN'S TEST Modified; FCOHb 0.2 % (0.0-3.9); FMetHb 0.1 % (0.0-1.5); FO2Hb 94.6 % (94-97); PATIENT TEMPERATURE 38.4; PEEP 7 cm H2O; RESPIRATORY RATE 16 b/min; TIDAL VOLUME 450 mL
[2021-01-05 03:49] LABS: BASOPHILS % (AUTO) 0 % (0-1); EOSINOPHILS % (AUTO) 0 % (0-6); HEMATOCRIT 40.2 % (42.0-52.0); HEMOGLOBIN 13.3 g/dl (14.0-17.9); LYMPHOCYTES # (AUTO) 0.3 X10'3 (1.1-4.8); LYMPHOCYTES % (AUTO) 2.1 % (21-51); MEAN CORPUSCULAR HEMOGLOBIN 31.2 PG (27.0-31.0); MEAN CORPUSCULAR HGB CONC 33.1 g/dL (33.0-36.5); MEAN CORPUSCULAR VOLUME 94.1 FL (78-98); MEAN PLATELET VOLUME 9.1 FL (7.4-10.4); MONOCYTES # (AUTO) 1.1 X10'3 (0-0.9); MONOCYTES % (AUTO) 7.1 % (2-12); NEUTROPHILS # (AUTO) 14.7 X10'3 (1.8-7.7); NEUTROPHILS % (AUTO) 90.8 % (42-75); PLATELET COUNT 253 X10'3 (140-440); RED BLOOD COUNT 4.27 X10'6 (4.70-6.10); RED CELL DISTRIBUTION WIDTH 14.4 % (11.5-14.5); WHITE BLOOD COUNT 16.2 X10'3 (4.5-11.0)
[2021-01-05] MEDS: propofol 1000mg/100ml bottle 100 ML IV SCH ×4 (03:50→17:37)
[2021-01-05] MEDS: NORepinephrine 8mg/ 250ml NS 250 ML IV SCH ×3 (03:52→23:17)
[2021-01-05 04:10] LABS: ALANINE AMINOTRANSFERASE 43 U/L (12-78); ALBUMIN 1.7 G/DL (3.4-5.0); ALBUMIN/GLOBULIN RATIO 0.5 (1.1-1.5); ALKALINE PHOSPHATASE 47 IU/L (46-116); ANION GAP 1 (8-16); ASPARTATE AMINO TRANSFERASE 17 U/L (10-37); BILIRUBIN,TOTAL 0.4 MG/DL (0.1-1.0); BLOOD UREA NITROGEN 20 MG/DL (7-18); BUN/CREATININE RATIO 32.3 (5.4-32.0); CALCIUM 8.1 MG/DL (8.5-10.1); CHLORIDE 118 MMOL/L (99-107); CREATININE 0.62 MG/DL (0.60-1.10); GLUCOSE 190 MG/DL (70-104); MAGNESIUM 2.3 MG/DL (1.5-2.4); PHOSPHORUS 2.4 MG/DL (2.3-4.5); POTASSIUM 3.9 MMOL/L (3.5-5.1); PREALBUMIN 12.2 MG/DL (19-36); SODIUM 154 MMOL/L (135-145); TOTAL CARBON DIOXIDE 35.1 MMOL/L (24-32); TOTAL PROTEIN 5.4 G/DL (6.4-8.2); eGFR > 90 ML/MIN
[2021-01-05 04:38] LABS: PARTIAL THROMBOPLASTIN TIME 28 SECONDS (22-32)
[2021-01-05] MEDS: acetaminophen 325mg tablet OGT PRN ×2 (06:03→17:37)
--- NOTE | 2021-01-05 06:22 | NUR ---
Received report from KANDI Crooks
[2021-01-05] MEDS: K and/or MAG REPLACEMENT MC SCH ×2 (08:00→20:00)
[2021-01-05] MEDS: docusate sodium 100mg/10ml UD cup OGT SCH ×2 (08:15→20:14)
[2021-01-05] MEDS: lactobacillus rhamnosus 10,000 MMU CELLS/CAPSULE OGT SCH ×2 (08:16→20:15)
[2021-01-05] MEDS: pantoprazole 40 MG vial IV SCH (08:16)
[2021-01-05] MEDS: nystatin 15 GM powder TP SCH ×2 (08:17→20:15)
[2021-01-05] MEDS: enoxaparin 80mg/0.8ml syringe SUBCUT SCH ×2 (08:17→20:15)
[2021-01-05] MEDS: vancomycin/NS 1 GM ADD-VANTAGE 250 ML X 1 DOSE IV SCH ×3 (10:09→23:15)
[2021-01-05] MEDS ORDERED: CEFEPIME 2gm in D5W 50mL 50 ML IV SCH (11:41)
[2021-01-05] MEDS: CEFEPIME 2gm in D5W 50mL 50 ML IV SCH ×2 (12:00→20:00)
[2021-01-05] MEDS: micafungin inj 100 MG in normal saline 100ml IV soln 100 ML IV SCH (12:21)
[2021-01-05 14:38] LABS: D-DIMER 1.28 MG/L FEU (0-0.50)
--- NOTE | 2021-01-05 18:16 | NUR ---
Report given to KANDI Crooks
[2021-01-05] MEDS: sennosides/docusate sodium tablet OGT SCH (20:15)
[2021-01-05] MEDS: insulin glargine (Lantus) pen - multi-dose SQ SCH (21:00)
[2021-01-06] VITALS (23 sets, daily range): BP systolic 111–140; BP diastolic 63–87
[2021-01-06] MEDS: methylPREDNISolone sod succ/PF 40mg inj. IV SCH ×4 (01:44→21:31)
[2021-01-06] MEDS: CEFEPIME 2gm in D5W 50mL 50 ML IV SCH ×3 (01:44→21:31)
[2021-01-06] MEDS: propofol 1000mg/100ml bottle 100 ML IV SCH ×4 (01:44→21:29)
[2021-01-06] MEDS: mineral oil/petrolatum ophthal oint EACHEYE SCH ×4 (01:44→20:00)
[2021-01-06] MEDS: FENTANYL-0.9 % NACL/PF 100 ML IV SCH ×6 (01:45→21:30)
[2021-01-06] MEDS: insulin regular, human U-100 3ml vial - multi-dose SQ SCH ×3 (02:15→21:52)
[2021-01-06 02:28] LABS: BASOPHILS % (AUTO) 0.1 % (0-1); EOSINOPHILS % (AUTO) 0 % (0-6); HEMOGLOBIN 13.3 g/dl (14.0-17.9); LYMPHOCYTES # (AUTO) 0.4 X10'3 (1.1-4.8); LYMPHOCYTES % (AUTO) 2.6 % (21-51); MEAN CORPUSCULAR HEMOGLOBIN 30.8 PG (27.0-31.0); MEAN CORPUSCULAR HGB CONC 32.5 g/dL (33.0-36.5); MEAN CORPUSCULAR VOLUME 94.7 FL (78-98); MEAN PLATELET VOLUME 9.5 FL (7.4-10.4); MONOCYTES # (AUTO) 0.8 X10'3 (0-0.9); MONOCYTES % (AUTO) 5.3 % (2-12); NEUTROPHILS # (AUTO) 14.7 X10'3 (1.8-7.7); PLATELET COUNT 200 X10'3 (140-440); RED BLOOD COUNT 4.32 X10'6 (4.70-6.10); RED CELL DISTRIBUTION WIDTH 14.7 % (11.5-14.5)
[2021-01-06 02:40] LABS: ALANINE AMINOTRANSFERASE 42 U/L (12-78); ALBUMIN 1.5 G/DL (3.4-5.0); ALBUMIN/GLOBULIN RATIO 0.4 (1.1-1.5); ALKALINE PHOSPHATASE 42 IU/L (46-116); ANION GAP 0 (8-16); ASPARTATE AMINO TRANSFERASE 27 U/L (10-37); BILIRUBIN,TOTAL 0.7 MG/DL (0.1-1.0); BLOOD UREA NITROGEN 19 MG/DL (7-18); BUN/CREATININE RATIO 30.2 (5.4-32.0); CHLORIDE 116 MMOL/L (99-107); CREATININE 0.63 MG/DL (0.60-1.10); GLUCOSE 148 MG/DL (70-104); MAGNESIUM 2.3 MG/DL (1.5-2.4); PARTIAL THROMBOPLASTIN TIME 31 SECONDS (22-32); PHOSPHORUS 2.3 MG/DL (2.3-4.5); POTASSIUM 4.3 MMOL/L (3.5-5.1); SODIUM 153 MMOL/L (135-145); TOTAL CARBON DIOXIDE 37.3 MMOL/L (24-32); TOTAL PROTEIN 5.4 G/DL (6.4-8.2); eGFR > 90 ML/MIN
[2021-01-06 03:03] LABS: ABG BASE EXCESS 8.3 mmol/L (-2.0-2.0); ABG HCO3 37.1 mmol/L (22.0-26.0); ABG OXYGEN SATURATION 96.2 % (94-97); ABG PCO2 (T) 75.2 mmHg (35.0-48.0); ABG PO2 (T) 86.9 mmHg (75.0-100.0); FCOHb 0.6 % (0.0-3.9); FMetHb 0.2 % (0.0-1.5); FO2Hb 95.4 % (94-97); PATIENT TEMPERATURE 38.2; PEEP 7 cm H2O; RESPIRATORY RATE 16 b/min; TIDAL VOLUME 450 mL; TOTAL HEMOGLOBIN 14.8 G/dl (14.0-18.0)
--- NOTE | 2021-01-06 06:30 | NUR ---
Patient in room CICU 2007. I have received report from Valeriy CHAU and had the opportunity to ask questions and assume patient care.
[2021-01-06] MEDS ORDERED: VANCOMYCIN LEVEL IV ONE (07:30)
[2021-01-06] MEDS: NORepinephrine 8mg/ 250ml NS 250 ML IV SCH (07:58)
[2021-01-06] MEDS: docusate sodium 100mg/10ml UD cup OGT SCH ×2 (08:46→21:30)
[2021-01-06] MEDS: lactobacillus rhamnosus 10,000 MMU CELLS/CAPSULE OGT SCH ×2 (08:46→21:30)
[2021-01-06] MEDS: acetaminophen 325mg tablet OGT PRN ×3 (08:47→13:55)
[2021-01-06] MEDS: pantoprazole 40 MG vial IV SCH (08:47)
[2021-01-06] MEDS: K and/or MAG REPLACEMENT MC SCH (08:48)
[2021-01-06] MEDS: enoxaparin 80mg/0.8ml syringe SUBCUT SCH (08:48)
[2021-01-06] MEDS: nystatin 15 GM powder TP SCH ×2 (08:49→20:00)
[2021-01-06] MEDS: micafungin inj 100 MG in normal saline 100ml IV soln 100 ML IV SCH (09:51)
--- NOTE | 2021-01-06 11:37 | NUR ---
Reassessment: Pt remains intubated and tolerating TF at goal rate with GRV WNL. Propofol rate down to 14.728 mL/hr this morning, providing ~389 kcal/day, no adjustments to TF recommendations needed at this time. Noted MD changed water flushes to 250 mL Q6H for hypernatremia totaling 1L/day however pt previously getting 200 mL Q4H totaling 1200 mL/day. D/w MD at critical care rounds who requests water flushes be increased to 400 mL Q6H (totaling 1600 mL/day), d/w RN. Of note pt previously receiving NS which was discontinued 01/05. LBM 01/02 receiving routine Colace and Nyasia KENDALL requests fleet enema for additional bowel care. Additional PRN bowel care also added to med list. Will continue to follow closely. Recommendations: 1) Continuous TF via OGT using Vital AF with 75 mL/hr goal rate to provide 1800 mL total volume/day, 2160 kcal, 135 g protein, and 1460 mL water. Will meet patient's estimated nutrient needs with Propofol at 14.728 mL/hr 2) Monitor for scaled weight and adjustments in Propofol rate and adjust TF recommendations as appropriate 3) Additional 400 mL water flush Q6H per MD; monitor serum Na and need to adjust 4) Prealbumin q Tuesday/ 5) Daily scaled weights 6) Routine bowel care 7) BSS with ST prior to PO diet advancement following extubation; previously on pureed food with thin liquids per ST 01/01; recommend regular diet in view of poor PO intake hx Addendum: 01/06/21 at [address] Amended: Links added.
--- NOTE | 2021-01-06 18:19 | NUR ---
Problems reprioritized. Patient report given, questions answered & plan of care reviewed with Valeriy RN.
[2021-01-06] MEDS: lactulose 20gm/30ml cup OGT PRN (21:30)
[2021-01-06] MEDS: sennosides/docusate sodium tablet OGT SCH (21:32)
[2021-01-06] MEDS: insulin glargine (Lantus) pen - multi-dose SQ SCH (21:51)
[2021-01-07] VITALS (24 sets, daily range): BP systolic 17–175; BP diastolic 50–109
[2021-01-07] MEDS: propofol 1000mg/100ml bottle 100 ML IV SCH ×5 (00:34→21:15)
[2021-01-07] MEDS: FENTANYL-0.9 % NACL/PF 100 ML IV SCH ×6 (00:36→21:18)
[2021-01-07] MEDS: insulin regular, human U-100 3ml vial - multi-dose SQ SCH ×4 (01:34→21:40)
[2021-01-07] MEDS: NORepinephrine 8mg/ 250ml NS 250 ML IV SCH ×3 (01:40→21:17)
[2021-01-07] MEDS: methylPREDNISolone sod succ/PF 40mg inj. IV SCH ×4 (01:40→20:00)
[2021-01-07] MEDS: mineral oil/petrolatum ophthal oint EACHEYE SCH ×4 (01:40→20:00)
[2021-01-07 02:07] LABS: BASOPHILS % (AUTO) 0.1 % (0-1); EOSINOPHILS % (AUTO) 0 % (0-6); HEMATOCRIT 40.9 % (42.0-52.0); HEMOGLOBIN 13.1 g/dl (14.0-17.9); LYMPHOCYTES # (AUTO) 0.4 X10'3 (1.1-4.8); MEAN CORPUSCULAR HEMOGLOBIN 30.6 PG (27.0-31.0); MEAN CORPUSCULAR HGB CONC 32.1 g/dL (33.0-36.5); MEAN CORPUSCULAR VOLUME 95.4 FL (78-98); MEAN PLATELET VOLUME 10.2 FL (7.4-10.4); MONOCYTES # (AUTO) 0.9 X10'3 (0-0.9); MONOCYTES % (AUTO) 4.6 % (2-12); NEUTROPHILS # (AUTO) 18.4 X10'3 (1.8-7.7); NEUTROPHILS % (AUTO) 93.3 % (42-75); PLATELET COUNT 191 X10'3 (140-440); RED BLOOD COUNT 4.28 X10'6 (4.70-6.10); RED CELL DISTRIBUTION WIDTH 14.7 % (11.5-14.5); WHITE BLOOD COUNT 19.7 X10'3 (4.5-11.0)
[2021-01-07 02:17] LABS: PARTIAL THROMBOPLASTIN TIME 26 SECONDS (22-32)
[2021-01-07 02:20] LABS: ALBUMIN 1.4 G/DL (3.4-5.0); ANION GAP 1 (8-16); BILIRUBIN,TOTAL 0.5 MG/DL (0.1-1.0); BLOOD UREA NITROGEN 21 MG/DL (7-18); BUN/CREATININE RATIO 32.8 (5.4-32.0); CALCIUM 8.1 MG/DL (8.5-10.1); CHLORIDE 111 MMOL/L (99-107); CREATININE 0.64 MG/DL (0.60-1.10); GLUCOSE 204 MG/DL (70-104); MAGNESIUM 2.3 MG/DL (1.5-2.4); PHOSPHORUS 2.5 MG/DL (2.3-4.5); POTASSIUM 4.5 MMOL/L (3.5-5.1); SODIUM 152 MMOL/L (135-145); TOTAL PROTEIN 5.7 G/DL (6.4-8.2); eGFR > 90 ML/MIN
[2021-01-07 02:21] LABS: ALANINE AMINOTRANSFERASE 38 U/L (12-78); ALBUMIN/GLOBULIN RATIO 0.3 (1.1-1.5); ALKALINE PHOSPHATASE 41 IU/L (46-116); ASPARTATE AMINO TRANSFERASE 22 U/L (10-37)
[2021-01-07 02:26] LABS: TOTAL CARBON DIOXIDE 40.1 MMOL/L (24-32)
[2021-01-07] MEDS: CEFEPIME 2gm in D5W 50mL 50 ML IV SCH ×3 (04:02→20:00)
[2021-01-07 04:08] LABS: ABG HCO3 43.9 mmol/L (22.0-26.0); ABG OXYGEN SATURATION 93.4 % (94-97); ABG PO2 (T) 67.8 mmHg (75.0-100.0); ALLEN'S TEST Modified; FCOHb 0.3 % (0.0-3.9); FMetHb 0.3 % (0.0-1.5); FO2Hb 92.8 % (94-97); PATIENT TEMPERATURE 37.9; PEEP 7 cm H2O; RESPIRATORY RATE 16 b/min; TIDAL VOLUME 450 mL
--- NOTE | 2021-01-07 06:15 | NUR ---
Patient in room CICU 2007. I have received report from Valeriy CHAU and had the opportunity to ask questions and assume patient care.
[2021-01-07] MEDS: K and/or MAG REPLACEMENT MC SCH ×3 (08:00→20:00)
--- NOTE | 2021-01-07 08:00 | NUR ---
Lip Noted that ETT was pressing on pts lip. Head tilted forward with additional pillow and towel roll on chest to support ETT off of lip.
[2021-01-07] MEDS: docusate sodium 100mg/10ml UD cup OGT SCH ×2 (08:14→20:00)
[2021-01-07] MEDS: pantoprazole 40 MG vial IV SCH (08:14)
[2021-01-07] MEDS: enoxaparin 80mg/0.8ml syringe SUBCUT SCH ×2 (08:19→20:00)
[2021-01-07] MEDS: nystatin 15 GM powder TP SCH ×2 (08:19→20:00)
[2021-01-07] MEDS: lactobacillus rhamnosus 10,000 MMU CELLS/CAPSULE OGT SCH ×2 (08:43→20:00)
[2021-01-07] MEDS: micafungin inj 100 MG in normal saline 100ml IV soln 100 ML IV SCH (08:44)
[2021-01-07] MEDS: acetaminophen 325mg tablet OGT PRN (16:49)
--- NOTE | 2021-01-07 17:57 | NUR ---
Shift note At about 1600 pt became very tachy (140s +), Hypertensive, SaO2 dropped to low 80s. RT notified, pt ventilated with BMV, and responded somewhat; back on vent pt recovered with peep 12 & 100% FIO2. Gradually improved to previous parameters - FIO2 back to 80% & PEEP of 7. Pt remains minimally responsive as before incident - i.e cough with suctioning same. Thanks Theresa PARKER. notified of incident. No additional orders or changes.
--- NOTE | 2021-01-07 18:12 | NUR ---
Problems reprioritized. Patient report given, questions answered & plan of care reviewed with Valeriy RN.
[2021-01-07] MEDS: sennosides/docusate sodium tablet OGT SCH (21:17)
[2021-01-07] MEDS: insulin glargine (Lantus) pen - multi-dose SQ SCH (21:38)
[2021-01-08] VITALS (24 sets, daily range): BP systolic 93–153; BP diastolic 50–88
[2021-01-08] MEDS: FENTANYL-0.9 % NACL/PF 100 ML IV SCH ×5 (00:44→16:32)
[2021-01-08] MEDS: insulin regular, human U-100 3ml vial - multi-dose SQ SCH ×2 (01:35→20:40)
[2021-01-08] MEDS: mineral oil/petrolatum ophthal oint EACHEYE SCH ×4 (01:36→20:00)
[2021-01-08] MEDS: CEFEPIME 2gm in D5W 50mL 50 ML IV SCH ×3 (01:36→20:00)
[2021-01-08] MEDS: methylPREDNISolone sod succ/PF 40mg inj. IV SCH ×4 (01:36→20:00)
[2021-01-08 02:06] LABS: BASOPHILS # (AUTO) 0.1 X10'3 (0-0.2); BASOPHILS % (AUTO) 0.3 % (0-1); EOSINOPHILS % (AUTO) 0 % (0-6); HEMATOCRIT 40.4 % (42.0-52.0); HEMOGLOBIN 12.8 g/dl (14.0-17.9); LYMPHOCYTES # (AUTO) 0.5 X10'3 (1.1-4.8); LYMPHOCYTES % (AUTO) 2.4 % (21-51); MEAN CORPUSCULAR HEMOGLOBIN 30.3 PG (27.0-31.0); MEAN CORPUSCULAR HGB CONC 31.6 g/dL (33.0-36.5); MEAN CORPUSCULAR VOLUME 95.9 FL (78-98); MONOCYTES # (AUTO) 0.6 X10'3 (0-0.9); MONOCYTES % (AUTO) 3.1 % (2-12); NEUTROPHILS # (AUTO) 19.4 X10'3 (1.8-7.7); NEUTROPHILS % (AUTO) 94.2 % (42-75); PLATELET COUNT 197 X10'3 (140-440); RED BLOOD COUNT 4.21 X10'6 (4.70-6.10); RED CELL DISTRIBUTION WIDTH 14.5 % (11.5-14.5); WHITE BLOOD COUNT 20.6 X10'3 (4.5-11.0)
[2021-01-08 02:18] LABS: PARTIAL THROMBOPLASTIN TIME 28 SECONDS (22-32)
[2021-01-08 02:19] LABS: ALANINE AMINOTRANSFERASE 29 U/L (12-78); ALBUMIN 1.3 G/DL (3.4-5.0); ALBUMIN/GLOBULIN RATIO 0.3 (1.1-1.5); ALKALINE PHOSPHATASE 44 IU/L (46-116); ANION GAP 1 (8-16); ASPARTATE AMINO TRANSFERASE 27 U/L (10-37); BILIRUBIN,TOTAL 0.6 MG/DL (0.1-1.0); BLOOD UREA NITROGEN 27 MG/DL (7-18); BUN/CREATININE RATIO 46.6 (5.4-32.0); CALCIUM 8.2 MG/DL (8.5-10.1); CHLORIDE 110 MMOL/L (99-107); CREATININE 0.58 MG/DL (0.60-1.10); GLUCOSE 145 MG/DL (70-104); MAGNESIUM 2.3 MG/DL (1.5-2.4); PHOSPHORUS 2.7 MG/DL (2.3-4.5); POTASSIUM 4.3 MMOL/L (3.5-5.1); SODIUM 152 MMOL/L (135-145); TOTAL PROTEIN 5.6 G/DL (6.4-8.2); eGFR > 90 ML/MIN
[2021-01-08 02:24] LABS: TOTAL CARBON DIOXIDE 41.4 MMOL/L (24-32)
[2021-01-08 03:23] LABS: ABG BASE EXCESS 15.1 mmol/L (-2.0-2.0); ABG HCO3 42.7 mmol/L (22.0-26.0); ABG OXYGEN SATURATION 89.7 % (94-97); ABG PCO2 (T) 68.3 mmHg (35.0-48.0); ALLEN'S TEST POSITIVE; FCOHb 0.5 % (0.0-3.9); FMetHb 0.1 % (0.0-1.5); FO2Hb 89.2 % (94-97); PATIENT TEMPERATURE 37.9; PEEP 7 cm H2O; RESPIRATORY RATE 16 b/min; TIDAL VOLUME 450 mL; TOTAL HEMOGLOBIN 13.9 G/dl (14.0-18.0)
[2021-01-08 04:38] LABS: PLATELET ESTIMATE NORMAL
[2021-01-08] MEDS: propofol 1000mg/100ml bottle 100 ML IV SCH ×4 (04:41→22:07)
--- NOTE | 2021-01-08 06:15 | NUR ---
Patient in room CICU 2007. I have received report from Valeriy CHAU and had the opportunity to ask questions and assume patient care.
[2021-01-08] MEDS: docusate sodium 100mg/10ml UD cup OGT SCH ×2 (08:33→20:00)
[2021-01-08] MEDS: pantoprazole 40 MG vial IV SCH (08:33)
[2021-01-08] MEDS: lactobacillus rhamnosus 10,000 MMU CELLS/CAPSULE OGT SCH ×2 (08:33→20:00)
[2021-01-08] MEDS: enoxaparin 80mg/0.8ml syringe SUBCUT SCH ×2 (08:33→20:00)
[2021-01-08] MEDS: K and/or MAG REPLACEMENT MC SCH (08:34)
[2021-01-08] MEDS: micafungin inj 100 MG in normal saline 100ml IV soln 100 ML IV SCH (08:34)
[2021-01-08] MEDS: nystatin 15 GM powder TP SCH ×2 (08:35→20:00)
[2021-01-08] MEDS ORDERED: mineral oil 133ml enema RC PRN (11:35)
--- NOTE | 2021-01-08 12:34 | NUR ---
F/u: Noted pt has been receiving 200 mL water flushes Q6H despite MD requesting 400 mL Q6H which is an active order in EMR, f/u with RN to clarify order. RN reports pt did not get enema yesterday and pt still with no BM, d/w MD at critical care rounds. Pt to get an enema today per MD. Addendum: 01/08/21 at [address] Amended: Links added.
[2021-01-08] MEDS ORDERED: metoprolol tartrate 1mg/ml inj IV ONE ×2 (16:20→16:22)
[2021-01-08] MEDS: NORepinephrine 8mg/ 250ml NS 250 ML IV SCH (16:33)
[2021-01-08] MEDS: vancomycin/NS 1 GM ADD-VANTAGE 250 ML IV SCH ×2 (17:08→20:00)
[2021-01-08] MEDS ORDERED: NORMAL SALINE IV SCH (18:00)
[2021-01-08] MEDS ORDERED: FENTANYL IV SCH (18:00)
[2021-01-08] MEDS ORDERED: amiodarone 150mg/dext, iso-os 100 ML IV ONE (18:05)
[2021-01-08] MEDS: fentaNYL/PF inj 2,500 MCG in normal saline 250ml IV soln 200 ML IV SCH (18:30)
--- NOTE | 2021-01-08 18:44 | NUR ---
Shift End Note Pt had SVT to 180s. MD notified orders for metoprolol which was effective temporally. SVT reoccurred and a second dose was administered per order. Pt HR improved to 90s but again about an hour later got to 155. MD orders noted but HR came down to 110 - 120 MD aware. Can hold amiodarone but use as needed. PICC RN placed Lt upper arm 3 lumen. All lines changed as well as drips. Central line removed, tip in tact. Rt upper arm IV removed and tip intact. Problems reprioritized. Patient report given, questions answered & plan of care reviewed with Valeriy CHAU.
[2021-01-08] MEDS: insulin glargine (Lantus) pen - multi-dose SQ SCH (20:38)
[2021-01-08] MEDS: sennosides/docusate sodium tablet OGT SCH (21:00)
[2021-01-09] VITALS (23 sets, daily range): BP systolic 83–143; BP diastolic 56–80
[2021-01-09] MEDS: amiodarone/D5 360MG/200ML BAG 200 ML IV SCH ×4 (00:05→18:05)
[2021-01-09] MEDS: propofol 1000mg/100ml bottle 100 ML IV SCH (02:11)
[2021-01-09] MEDS: mineral oil/petrolatum ophthal oint EACHEYE SCH ×4 (02:12→20:00)
[2021-01-09] MEDS: NORepinephrine 8mg/ 250ml NS 250 ML IV SCH (02:12)
[2021-01-09] MEDS: fentaNYL/PF inj 2,500 MCG in normal saline 250ml IV soln 200 ML IV SCH (02:13)
[2021-01-09] MEDS: methylPREDNISolone sod succ/PF 40mg inj. IV SCH ×4 (02:14→20:00)
[2021-01-09] MEDS: insulin regular, human U-100 3ml vial - multi-dose SQ SCH ×4 (02:23→20:08)
[2021-01-09 02:32] LABS: HEMOGLOBIN 11.9 g/dl (14.0-17.9); LYMPHOCYTES # (AUTO) 0.5 X10'3 (1.1-4.8)
[2021-01-09 02:34] LABS: BASOPHILS # (AUTO) 0.1 X10'3 (0-0.2); BASOPHILS % (AUTO) 0.3 % (0-1); EOSINOPHILS % (AUTO) 0.2 % (0-6); HEMATOCRIT 35.6 % (42.0-52.0); LYMPHOCYTES % (AUTO) 2.2 % (21-51); MEAN CORPUSCULAR HEMOGLOBIN 31.5 PG (27.0-31.0); MEAN CORPUSCULAR HGB CONC 33.4 g/dL (33.0-36.5); MEAN CORPUSCULAR VOLUME 94.4 FL (78-98); MEAN PLATELET VOLUME 11.7 FL (7.4-10.4); MONOCYTES # (AUTO) 0.8 X10'3 (0-0.9); MONOCYTES % (AUTO) 3.5 % (2-12); NEUTROPHILS # (AUTO) 20.4 X10'3 (1.8-7.7); NEUTROPHILS % (AUTO) 93.8 % (42-75); PLATELET COUNT 160 X10'3 (140-440); RED BLOOD COUNT 3.77 X10'6 (4.70-6.10); RED CELL DISTRIBUTION WIDTH 14.2 % (11.5-14.5); WHITE BLOOD COUNT 21.7 X10'3 (4.5-11.0)
[2021-01-09 02:44] LABS: ALBUMIN 0.9 G/DL (3.4-5.0); ALBUMIN/GLOBULIN RATIO 0.2 (1.1-1.5); ALKALINE PHOSPHATASE 64 IU/L (46-116); BILIRUBIN,TOTAL 1.4 MG/DL (0.1-1.0); BLOOD UREA NITROGEN 27 MG/DL (7-18); BUN/CREATININE RATIO 62.8 (5.4-32.0); CALCIUM 6.9 MG/DL (8.5-10.1); CHLORIDE 106 MMOL/L (99-107); CREATININE 0.43 MG/DL (0.60-1.10); TOTAL CARBON DIOXIDE 36.7 MMOL/L (24-32); TOTAL PROTEIN 4.8 G/DL (6.4-8.2); TRIGLYCERIDES 931 MG/DL (20-135); eGFR > 90 ML/MIN
[2021-01-09 03:01] LABS: ALANINE AMINOTRANSFERASE 48 U/L (12-78); ANION GAP 0 (8-16); GLUCOSE 96 MG/DL (70-104); PHOSPHORUS 2.2 MG/DL (2.3-4.5); POTASSIUM 3.5 MMOL/L (3.5-5.1); SODIUM 143 MMOL/L (135-145)
[2021-01-09 03:11] LABS: ASPARTATE AMINO TRANSFERASE 48 U/L (10-37)
[2021-01-09] MEDS: CEFEPIME 2gm in D5W 50mL 50 ML IV SCH ×3 (03:25→20:00)
[2021-01-09] MEDS: vancomycin/NS 1 GM ADD-VANTAGE 250 ML IV SCH ×2 (03:25→11:26)
[2021-01-09 03:56] LABS: ABG BASE EXCESS 13.7 mmol/L (-2.0-2.0); ABG OXYGEN SATURATION 95.8 % (94-97); ABG PCO2 (T) 74.6 mmHg (35.0-48.0); ABG PO2 (T) 91.3 mmHg (75.0-100.0); ALLEN'S TEST Modified; FCOHb 0.6 % (0.0-3.9); FO2Hb 95.2 % (94-97); PEEP 14 cm H2O; RESPIRATORY RATE 16 b/min; TIDAL VOLUME 650 mL; TOTAL HEMOGLOBIN 13.2 G/dl (14.0-18.0)
--- NOTE | 2021-01-09 04:27 | NUR ---
Provider molten iron pourer notified of pt's decrease in o2 (84-85%). Orders given for stat chest xray to rule out pneumothorax. If not present increase peep to 14, and prone. Patients peep was increased to 14 and was proned. Pt responded well . T/O RB 01/08/212039 hrs
[2021-01-09 07:17] LABS: PLATELET ESTIMATE NORMAL; POIKILOCYTOSIS FEW; TOTAL CELLS COUNTED 100
[2021-01-09] MEDS: K and/or MAG REPLACEMENT MC SCH (08:00)
[2021-01-09] MEDS: lactobacillus rhamnosus 10,000 MMU CELLS/CAPSULE OGT SCH ×2 (08:40→20:00)
[2021-01-09] MEDS: pantoprazole 40 MG vial IV SCH (08:40)
[2021-01-09] MEDS: micafungin inj 100 MG in normal saline 100ml IV soln 100 ML IV SCH (08:41)
[2021-01-09] MEDS: enoxaparin 80mg/0.8ml syringe SUBCUT SCH ×2 (08:41→20:00)
[2021-01-09] MEDS: nystatin 15 GM powder TP SCH ×2 (08:42→20:00)
[2021-01-09] MEDS: docusate sodium 100mg/10ml UD cup OGT SCH ×2 (08:42→20:00)
[2021-01-09] MEDS ORDERED: VANCOMYCIN LEVEL IV ONE (11:30)
[2021-01-09] MEDS ORDERED: magnesium 2GM in 50ml NS 50 ML IV ONE (11:45)
[2021-01-09] MEDS: midazolam 100mg in NS 100 ML INFUSION IV PRN (12:23)
--- NOTE | 2021-01-09 12:50 | NUR ---
Reassessment: Pt remains intubated and tolerating TF at goal rate with GRV WNL. Notified MD of elevated TG at 931 mg/dL and receiving Propofol. Propofol discontinued and changed to Versed per MD at critical care rounds. Still no BM since 01/02, pt continues receiving routine Colace and Senna-S. PRN Lactulose given 01/06 and pt with additional PRN bowel care available though not documented to be given. Will continue to follow. Recommendations: 1) Continuous TF via OGT using Vital AF with 75 mL/hr goal rate to provide 1800 mL total volume/day, 2160 kcal, 135 g protein, and 1460 mL water 2) Monitor for scaled weight and adjust TF recommendations as appropriate 3) Additional 400 mL water flush Q6H per MD; monitor serum Na and need to adjust 4) Prealbumin q Tuesday/ 5) Daily scaled weights 6) Routine bowel care; consider additional given no BM x 7 days 7) BSS with ST prior to PO diet advancement following extubation; previously on pureed food with thin liquids per ST 01/01; recommend regular diet in view of poor PO intake hx Addendum: 01/09/21 at [address] Amended: Links added.
[2021-01-09] MEDS: VANCOmycin 1250MG/NS 250ml Bag 250 ML IV SCH (20:00)
[2021-01-09] MEDS: insulin glargine (Lantus) pen - multi-dose SQ SCH (20:07)
[2021-01-09] MEDS: sennosides/docusate sodium tablet OGT SCH (21:02)
[2021-01-10] VITALS (24 sets, daily range): BP systolic 97–130; BP diastolic 53–75
[2021-01-10] MEDS: amiodarone/D5 360MG/200ML BAG 200 ML IV SCH ×2 (00:05→15:26)
[2021-01-10] MEDS: methylPREDNISolone sod succ/PF 40mg inj. IV SCH ×4 (01:53→20:47)
[2021-01-10] MEDS: mineral oil/petrolatum ophthal oint EACHEYE SCH ×4 (01:53→20:47)
[2021-01-10] MEDS: insulin regular, human U-100 3ml vial - multi-dose SQ SCH ×4 (01:57→20:07)
[2021-01-10 02:01] LABS: BASOPHILS % (AUTO) 0.1 % (0-1); EOSINOPHILS % (AUTO) 0 % (0-6); HEMATOCRIT 30.8 % (42.0-52.0); LYMPHOCYTES # (AUTO) 0.4 X10'3 (1.1-4.8); LYMPHOCYTES % (AUTO) 1.8 % (21-51); MEAN CORPUSCULAR HEMOGLOBIN 30.7 PG (27.0-31.0); MEAN CORPUSCULAR HGB CONC 32.4 g/dL (33.0-36.5); MEAN CORPUSCULAR VOLUME 94.7 FL (78-98); MEAN PLATELET VOLUME 11.6 FL (7.4-10.4); MONOCYTES # (AUTO) 0.8 X10'3 (0-0.9); MONOCYTES % (AUTO) 3.8 % (2-12); NEUTROPHILS # (AUTO) 20.3 X10'3 (1.8-7.7); NEUTROPHILS % (AUTO) 94.3 % (42-75); PLATELET COUNT 136 X10'3 (140-440); RED BLOOD COUNT 3.25 X10'6 (4.70-6.10); RED CELL DISTRIBUTION WIDTH 13.9 % (11.5-14.5); WHITE BLOOD COUNT 21.5 X10'3 (4.5-11.0)
[2021-01-10] MEDS: fentaNYL/PF inj 2,500 MCG in normal saline 250ml IV soln 200 ML IV SCH ×2 (02:07→19:36)
[2021-01-10 02:09] LABS: PARTIAL THROMBOPLASTIN TIME 35 SECONDS (22-32)
[2021-01-10 02:11] LABS: ALANINE AMINOTRANSFERASE 41 U/L (12-78); ALBUMIN 0.8 G/DL (3.4-5.0); ALBUMIN/GLOBULIN RATIO 0.2 (1.1-1.5); ALKALINE PHOSPHATASE 57 IU/L (46-116); ASPARTATE AMINO TRANSFERASE 34 U/L (10-37); BILIRUBIN,TOTAL 0.5 MG/DL (0.1-1.0); BLOOD UREA NITROGEN 28 MG/DL (7-18); BUN/CREATININE RATIO 51.9 (5.4-32.0); C-REACTIVE PROTEIN 21.63 MG/DL (0.0-0.5); CALCIUM 7.4 MG/DL (8.5-10.1); CHLORIDE 107 MMOL/L (99-107); CREATININE 0.54 MG/DL (0.60-1.10); GLUCOSE 151 MG/DL (70-104); MAGNESIUM 2.3 MG/DL (1.5-2.4); PHOSPHORUS 2.5 MG/DL (2.3-4.5); POTASSIUM 4.5 MMOL/L (3.5-5.1); SODIUM 146 MMOL/L (135-145); TOTAL PROTEIN 4.7 G/DL (6.4-8.2); eGFR > 90 ML/MIN
[2021-01-10 02:26] LABS: ANION GAP 2 (8-16); TOTAL CARBON DIOXIDE 36.9 MMOL/L (24-32); TRIGLYCERIDES 111 MG/DL (20-135)
[2021-01-10] MEDS: VANCOmycin 1250MG/NS 250ml Bag 250 ML IV SCH ×3 (03:05→20:47)
[2021-01-10 04:00] LABS: ABG BASE EXCESS 14.6 mmol/L (-2.0-2.0); ABG HCO3 42.4 mmol/L (22.0-26.0); ABG OXYGEN SATURATION 95.4 % (94-97); ABG PCO2 (T) 73.8 mmHg (35.0-48.0); ABG PO2 (T) 85.6 mmHg (75.0-100.0); ALLEN'S TEST Modified; FCOHb 0.4 % (0.0-3.9); FMetHb 0.3 % (0.0-1.5); FO2Hb 94.7 % (94-97); PATIENT TEMPERATURE 37.8; PEEP 12 cm H2O; RESPIRATORY RATE 16 b/min; TIDAL VOLUME 650 mL; TOTAL HEMOGLOBIN 11.3 G/dl (14.0-18.0)
[2021-01-10] MEDS: CEFEPIME 2gm in D5W 50mL 50 ML IV SCH (04:40)
[2021-01-10 04:49] LABS: LARGE PLATELETS FEW; PLATELET ESTIMATE DECREASED; SMUDGE CELLS 2+; TOTAL CELLS COUNTED 100
[2021-01-10 04:50] LABS: POIKILOCYTOSIS FEW
[2021-01-10] MEDS: NORepinephrine 8mg/ 250ml NS 250 ML IV SCH ×2 (05:36→20:48)
[2021-01-10] MEDS: K and/or MAG REPLACEMENT MC SCH (08:00)
[2021-01-10] MEDS: docusate sodium 100mg/10ml UD cup OGT SCH ×2 (08:00→20:00)
[2021-01-10] MEDS: enoxaparin 80mg/0.8ml syringe SUBCUT SCH ×2 (08:17→20:47)
[2021-01-10] MEDS: micafungin inj 100 MG in normal saline 100ml IV soln 100 ML IV SCH (08:17)
[2021-01-10] MEDS: lactobacillus rhamnosus 10,000 MMU CELLS/CAPSULE OGT SCH ×2 (08:18→20:47)
[2021-01-10] MEDS: nystatin 15 GM powder TP SCH ×2 (08:18→20:47)
[2021-01-10] MEDS: pantoprazole 40 MG vial IV SCH (08:18)
[2021-01-10] MEDS ORDERED: VANCOMYCIN LEVEL IV ONE (09:30)
[2021-01-10] MEDS ORDERED: ceFOXitin 2GM-NS 100mL ADDvant 100 ML IV SCH (12:00)
[2021-01-10] MEDS: midazolam 100mg in NS 100 ML INFUSION IV PRN ×2 (13:05→15:27)
[2021-01-10] MEDS: cefepime 2g/NS 100ml ADVANTAGE 100 ML IV SCH ×2 (13:56→19:43)
[2021-01-10] MEDS ORDERED: furosemide 40mg/4ml inj IV ONE (16:10)
[2021-01-10] MEDS: insulin glargine (Lantus) pen - multi-dose SQ SCH (20:06)
[2021-01-10] MEDS: sennosides/docusate sodium tablet OGT SCH (20:47)
[2021-01-11] VITALS (24 sets, daily range): BP systolic 101–152; BP diastolic 60–81
[2021-01-11] MEDS: insulin regular, human U-100 3ml vial - multi-dose SQ SCH ×4 (01:12→21:34)
[2021-01-11] MEDS: mineral oil/petrolatum ophthal oint EACHEYE SCH ×4 (02:38→20:44)
[2021-01-11] MEDS: methylPREDNISolone sod succ/PF 40mg inj. IV SCH ×4 (02:38→20:41)
[2021-01-11] MEDS: amiodarone/D5 360MG/200ML BAG 200 ML IV SCH ×4 (03:07→18:05)
[2021-01-11 03:09] LABS: BASOPHILS % (AUTO) 0.2 % (0-1); EOSINOPHILS % (AUTO) 0 % (0-6); HEMATOCRIT 30.2 % (42.0-52.0); HEMOGLOBIN 9.7 g/dl (14.0-17.9); LYMPHOCYTES # (AUTO) 0.4 X10'3 (1.1-4.8); LYMPHOCYTES % (AUTO) 1.9 % (21-51); MEAN CORPUSCULAR HEMOGLOBIN 30.6 PG (27.0-31.0); MEAN CORPUSCULAR VOLUME 95.4 FL (78-98); MONOCYTES # (AUTO) 1.2 X10'3 (0-0.9); MONOCYTES % (AUTO) 5.3 % (2-12); NEUTROPHILS # (AUTO) 20.6 X10'3 (1.8-7.7); NEUTROPHILS % (AUTO) 92.6 % (42-75); PLATELET COUNT 168 X10'3 (140-440); RED BLOOD COUNT 3.16 X10'6 (4.70-6.10); RED CELL DISTRIBUTION WIDTH 14.1 % (11.5-14.5); WHITE BLOOD COUNT 22.2 X10'3 (4.5-11.0)
[2021-01-11 03:12] LABS: ABG BASE EXCESS 15.1 mmol/L (-2.0-2.0); ABG HCO3 43.6 mmol/L (22.0-26.0); ABG OXYGEN SATURATION 95.4 % (94-97); ABG PCO2 (T) 79.8 mmHg (35.0-48.0); ABG PO2 (T) 82.8 mmHg (75.0-100.0); ALLEN'S TEST Modified; FCOHb 0.3 % (0.0-3.9); FMetHb 0.3 % (0.0-1.5); FO2Hb 94.8 % (94-97); PATIENT TEMPERATURE 37.4; PEEP 12 cm H2O; RESPIRATORY RATE 16 b/min; TIDAL VOLUME 650 mL; TOTAL HEMOGLOBIN 11.2 G/dl (14.0-18.0)
[2021-01-11 03:15] LABS: PARTIAL THROMBOPLASTIN TIME 29 SECONDS (22-32)
[2021-01-11 03:21] LABS: ALANINE AMINOTRANSFERASE 59 U/L (12-78); ALBUMIN 0.9 G/DL (3.4-5.0); ALBUMIN/GLOBULIN RATIO 0.2 (1.1-1.5); ALKALINE PHOSPHATASE 59 IU/L (46-116); ANION GAP 4 (8-16); ASPARTATE AMINO TRANSFERASE 37 U/L (10-37); BILIRUBIN,TOTAL 0.3 MG/DL (0.1-1.0); CHLORIDE 102 MMOL/L (99-107); GLUCOSE 223 MG/DL (70-104); MAGNESIUM 2.1 MG/DL (1.5-2.4); POTASSIUM 4.2 MMOL/L (3.5-5.1); SODIUM 143 MMOL/L (135-145); TOTAL CARBON DIOXIDE 37.3 MMOL/L (24-32)
[2021-01-11 03:53] LABS: HYPERSEGMENTED NEUTROPHILS FEW; LARGE PLATELETS FEW; PLATELET ESTIMATE NORMAL; POIKILOCYTOSIS FEW; POLYCHROMASIA FEW; SMUDGE CELLS 1+; TOTAL CELLS COUNTED 100
[2021-01-11] MEDS: VANCOmycin 1250MG/NS 250ml Bag 250 ML IV SCH ×3 (04:00→20:44)
[2021-01-11] MEDS: cefepime 2g/NS 100ml ADVANTAGE 100 ML IV SCH ×3 (04:46→20:44)
[2021-01-11 04:53] LABS: BLOOD UREA NITROGEN 30 MG/DL (7-18); BUN/CREATININE RATIO 53.6 (5.4-32.0); CALCIUM 7.2 MG/DL (8.5-10.1); CREATININE 0.56 MG/DL (0.60-1.10); PHOSPHORUS 2.7 MG/DL (2.3-4.5); eGFR > 90 ML/MIN
[2021-01-11] MEDS: fentaNYL/PF inj 2,500 MCG in normal saline 250ml IV soln 200 ML IV SCH (05:36)
--- NOTE | 2021-01-11 06:15 | NUR ---
Patient in room CICU 2007. I have received report from Valeriy CHAU and had the opportunity to ask questions and assume patient care.
--- NOTE | 2021-01-11 06:30 | NUR ---
Skin issues Eval with off-going RN. Pts scrotum and penis are edematous and steven has 2 small blisters. Pts left eye has some edema but night RN says its better than yesterday. Thanks
[2021-01-11] MEDS: K and/or MAG REPLACEMENT MC SCH ×2 (08:00→08:50)
[2021-01-11] MEDS: enoxaparin 80mg/0.8ml syringe SUBCUT SCH ×2 (08:23→20:42)
[2021-01-11] MEDS: lactobacillus rhamnosus 10,000 MMU CELLS/CAPSULE OGT SCH ×2 (08:23→20:42)
[2021-01-11] MEDS: micafungin inj 100 MG in normal saline 100ml IV soln 100 ML IV SCH ×2 (08:23→08:50)
[2021-01-11] MEDS: nystatin 15 GM powder TP SCH ×2 (08:24→20:42)
[2021-01-11] MEDS: pantoprazole 40 MG vial IV SCH (08:49)
[2021-01-11] MEDS: docusate sodium 100mg/10ml UD cup OGT SCH ×2 (08:55→20:44)
--- NOTE | 2021-01-11 12:47 | NUR ---
Bowel note Noted that pt had not had BM nor enema. Rectal bag placed with Katherine RN assistance (thanks again). Pts O2 sats dropped to 84 while lying on his left side. Enema administered after bag was places. Pt then turned to left side with pillow under right. Skin on back had not obvious areas of concern. Pad remains over coccyx area.
[2021-01-11] MEDS: midazolam 100mg in NS 100 ML INFUSION IV PRN (17:21)
[2021-01-11] MEDS: lactulose 20gm/30ml cup OGT PRN (20:41)
[2021-01-11] MEDS: sennosides/docusate sodium tablet OGT SCH (20:42)
[2021-01-11] MEDS: insulin glargine (Lantus) pen - multi-dose SQ SCH (21:33)
[2021-01-12] VITALS (22 sets, daily range): BP systolic 101–154; BP diastolic 32–81
[2021-01-12] MEDS: insulin regular, human U-100 3ml vial - multi-dose SQ SCH ×4 (01:14→20:15)
[2021-01-12] MEDS: methylPREDNISolone sod succ/PF 40mg inj. IV SCH ×3 (01:55→15:57)
[2021-01-12] MEDS: mineral oil/petrolatum ophthal oint EACHEYE SCH ×4 (01:55→19:41)
[2021-01-12] MEDS: fentaNYL/PF inj 2,500 MCG in normal saline 250ml IV soln 200 ML IV SCH (01:55)
[2021-01-12] MEDS: amiodarone/D5 360MG/200ML BAG 200 ML IV SCH ×4 (02:04→12:50)
[2021-01-12 02:54] LABS: PARTIAL THROMBOPLASTIN TIME 33 SECONDS (22-32)
[2021-01-12 03:01] LABS: ANION GAP 2 (8-16); CHLORIDE 104 MMOL/L (99-107); GLUCOSE 209 MG/DL (70-104); POTASSIUM 4.2 MMOL/L (3.5-5.1); SODIUM 142 MMOL/L (135-145); TOTAL CARBON DIOXIDE 36 MMOL/L (24-32)
[2021-01-12 03:02] LABS: BILIRUBIN,TOTAL 0.4 MG/DL (0.1-1.0); BLOOD UREA NITROGEN 29 MG/DL (7-18); BUN/CREATININE RATIO 52.7 (5.4-32.0); CALCIUM 7.1 MG/DL (8.5-10.1); CREATININE 0.55 MG/DL (0.60-1.10); MAGNESIUM 2.3 MG/DL (1.5-2.4); PHOSPHORUS 1.7 MG/DL (2.3-4.5); eGFR > 90 ML/MIN
[2021-01-12 03:03] LABS: ALANINE AMINOTRANSFERASE 72 U/L (12-78); ALBUMIN/GLOBULIN RATIO 0.3 (1.1-1.5); ALKALINE PHOSPHATASE 55 IU/L (46-116); ASPARTATE AMINO TRANSFERASE 32 U/L (10-37); PREALBUMIN 12.2 MG/DL (19-36); TOTAL PROTEIN 4.9 G/DL (6.4-8.2)
[2021-01-12 03:31] LABS: ABG BASE EXCESS 15.4 mmol/L (-2.0-2.0); ABG HCO3 41.6 mmol/L (22.0-26.0); ABG OXYGEN SATURATION 93.1 % (94-97); ABG PO2 (T) 63.4 mmHg (75.0-100.0); ALLEN'S TEST POSITIVE; FCOHb 0.3 % (0.0-3.9); FMetHb 0.1 % (0.0-1.5); FO2Hb 92.7 % (94-97); PATIENT TEMPERATURE 37.1; PEEP 12 cm H2O; RESPIRATORY RATE 28 b/min; TIDAL VOLUME 650 mL; TOTAL HEMOGLOBIN 11.7 G/dl (14.0-18.0)
[2021-01-12] MEDS: VANCOmycin 1250MG/NS 250ml Bag 250 ML IV SCH ×3 (04:06→19:41)
[2021-01-12] MEDS: cefepime 2g/NS 100ml ADVANTAGE 100 ML IV SCH (04:06)
--- NOTE | 2021-01-12 06:30 | NUR ---
Patient in room CICU 2007. I have received report from Valeriy CHAU and had the opportunity to ask questions and assume patient care.
[2021-01-12] MEDS: docusate sodium 100mg/10ml UD cup OGT SCH ×2 (08:00→19:40)
[2021-01-12] MEDS: K and/or MAG REPLACEMENT MC SCH (08:00)
[2021-01-12] MEDS: lactobacillus rhamnosus 10,000 MMU CELLS/CAPSULE OGT SCH ×2 (08:12→19:40)
[2021-01-12] MEDS: pantoprazole 40 MG vial IV SCH (08:12)
[2021-01-12] MEDS: nystatin 15 GM powder TP SCH ×2 (08:12→19:39)
[2021-01-12] MEDS: enoxaparin 80mg/0.8ml syringe SUBCUT SCH ×2 (08:12→19:40)
--- NOTE | 2021-01-12 11:15 | NUR ---
F/u: Pt free water flushes cancelled in EMR received 200ml Q6H instead of prior 400ml Q6H. Serum Na 142 this AM w/ 100ml Q6H free water to start per auto salvage worker updated recs below. Opioid antagonist to start today given 10 days constipation per auto salvage worker. Recommendations: 1) Continuous TF via OGT using Vital AF with 75 mL/hr goal rate to provide 1800 mL total volume/day, 2160 kcal, 135 g protein, and 1460 mL water 2) Monitor for scaled weight and adjust TF recommendations as appropriate 3) Additional 100mL water flush Q6H per MD; monitor serum Na and need to adjust 4) Prealbumin q Tuesday/ 5) Daily scaled weights 6) Routine bowel care; opioid antagonist given no BM x 10days 7) BSS with ST prior to PO diet advancement following extubation; previously on pureed food with thin liquids per ST 01/01; recommend regular diet in view of poor PO intake hx Addendum: 01/12/21 at [address] Amended: Links added.
[2021-01-12] MEDS: methylnaltrexone br 12mg/0.6ml inj***SubQ only SQ SCH (12:49)
[2021-01-12] MEDS: NORepinephrine 8mg/ 250ml NS 250 ML IV SCH (12:50)
[2021-01-12] MEDS ORDERED: furosemide 40mg/4ml inj IV ONE (17:10)
[2021-01-12] MEDS ORDERED: albumin (human) 25% 100 ML IV solution IV ONE (17:10)
--- NOTE | 2021-01-12 18:27 | NUR ---
Problems reprioritized. Patient report given, questions answered & plan of care reviewed with Valeriy RN.
[2021-01-12] MEDS: lactulose 20gm/30ml cup OGT PRN (19:42)
[2021-01-12] MEDS: insulin glargine (Lantus) pen - multi-dose SQ SCH (20:14)
[2021-01-12] MEDS: sennosides/docusate sodium tablet OGT SCH (20:15)
[2021-01-13] VITALS (24 sets, daily range): BP systolic 99–160; BP diastolic 51–82
[2021-01-13] MEDS: mineral oil/petrolatum ophthal oint EACHEYE SCH ×4 (01:19→20:00)
[2021-01-13] MEDS: amiodarone/D5 360MG/200ML BAG 200 ML IV SCH ×7 (01:21→22:24)
[2021-01-13] MEDS: insulin regular, human U-100 3ml vial - multi-dose SQ SCH ×4 (01:55→23:10)
[2021-01-13] MEDS: midazolam 100mg in NS 100 ML INFUSION IV PRN ×3 (02:29→22:22)
[2021-01-13 02:43] LABS: D-DIMER 1.34 MG/L FEU (0-0.50); PARTIAL THROMBOPLASTIN TIME 25 SECONDS (22-32)
[2021-01-13 02:46] LABS: ALANINE AMINOTRANSFERASE 51 U/L (12-78); ALBUMIN 1.5 G/DL (3.4-5.0); ALBUMIN/GLOBULIN RATIO 0.4 (1.1-1.5); ALKALINE PHOSPHATASE 61 IU/L (46-116); ANION GAP 2 (8-16); ASPARTATE AMINO TRANSFERASE 21 U/L (10-37); BILIRUBIN,TOTAL 0.5 MG/DL (0.1-1.0); BLOOD UREA NITROGEN 31 MG/DL (7-18); BUN/CREATININE RATIO 54.4 (5.4-32.0); C-REACTIVE PROTEIN 2.14 MG/DL (0.0-0.5); CALCIUM 7.6 MG/DL (8.5-10.1); CHLORIDE 103 MMOL/L (99-107); CREATININE 0.57 MG/DL (0.60-1.10); GLUCOSE 149 MG/DL (70-104); MAGNESIUM 2.3 MG/DL (1.5-2.4); PHOSPHORUS 3.7 MG/DL (2.3-4.5); POTASSIUM 4.4 MMOL/L (3.5-5.1); SODIUM 140 MMOL/L (135-145); TOTAL CARBON DIOXIDE 35.5 MMOL/L (24-32); TOTAL PROTEIN 4.9 G/DL (6.4-8.2); eGFR > 90 ML/MIN
[2021-01-13 03:04] LABS: ABG BASE EXCESS 9.2 mmol/L (-2.0-2.0); ABG HCO3 33.9 mmol/L (22.0-26.0); ABG OXYGEN SATURATION 88.8 % (94-97); ABG PCO2 (T) 36.5 mmHg (35.0-48.0); ABG PO2 (T) 36.3 mmHg (75.0-100.0); ALLEN'S TEST POSITIVE; FCOHb 0.3 % (0.0-3.9); FMetHb 0.1 % (0.0-1.5); FO2Hb 88.4 % (94-97); PATIENT TEMPERATURE 31.3; PEEP 12 cm H2O; RESPIRATORY RATE 28 b/min; TIDAL VOLUME 650 mL; TOTAL HEMOGLOBIN 11.2 G/dl (14.0-18.0)
[2021-01-13] MEDS: VANCOmycin 1250MG/NS 250ml Bag 250 ML IV SCH ×3 (04:05→20:00)
[2021-01-13] MEDS: fentaNYL/PF inj 2,500 MCG in normal saline 250ml IV soln 200 ML IV SCH ×2 (04:06→16:00)
[2021-01-13] MEDS: NORepinephrine 8mg/ 250ml NS 250 ML IV SCH ×3 (04:08→20:54)
[2021-01-13] MEDS: K and/or MAG REPLACEMENT MC SCH (08:00)
[2021-01-13] MEDS: pantoprazole 40 MG vial IV SCH (08:13)
[2021-01-13] MEDS: methylPREDNISolone sod succ/PF 40mg inj. IV SCH ×4 (08:13→22:25)
[2021-01-13] MEDS: lactobacillus rhamnosus 10,000 MMU CELLS/CAPSULE OGT SCH ×2 (08:13→22:25)
[2021-01-13] MEDS: docusate sodium 100mg/10ml UD cup OGT SCH ×2 (08:13→20:00)
[2021-01-13] MEDS: nystatin 15 GM powder TP SCH ×2 (08:14→20:00)
[2021-01-13] MEDS: enoxaparin 80mg/0.8ml syringe SUBCUT SCH ×2 (08:14→22:25)
--- NOTE | 2021-01-13 12:07 | NUR ---
Reassessment: Pt remains intubated and tolerating TF at goal rate with GRV WNL. Noted patient's water flush order was completed in EMR, will update per MD recs of 100 mL Q6H. Pt still with no BM since 01/02. Pt receiving routine Colace and Senna-s and received PRN mineral oil enema and MoM 01/11 with PRN Lactulose given 01/12. Patient started on routine Relistor 01/12. MD aware of patient's LBM. Will continue to follow closely. Recommendations: 1) Continuous TF via OGT using Vital AF with 75 mL/hr goal rate to provide 1800 mL total volume/day, 2160 kcal, 135 g protein, and 1460 mL water 2) Monitor for scaled weight and adjust TF recommendations as appropriate 3) Additional 100mL water flush Q6H per MD; monitor serum Na and need to adjust 4) Prealbumin q Tuesday/ 5) Daily scaled weights 6) Routine bowel care; opioid antagonist given no BM x 10days 7) BSS with ST prior to PO diet advancement following extubation; previously on pureed food with thin liquids per ST 01/01; recommend regular diet in view of poor PO intake hx Addendum: 01/13/21 at [address] Amended: Links added.
[2021-01-13] MEDS ORDERED: albumin (human) 25% 100 ML IV solution IV ONE (15:15)
[2021-01-13] MEDS ORDERED: furosemide 40mg/4ml inj IV ONE (15:15)
[2021-01-13 15:25] LABS: BASOPHILS % (AUTO) 0.1 % (0-1); EOSINOPHILS % (AUTO) 0.1 % (0-6); HEMATOCRIT 31.1 % (42.0-52.0); HEMOGLOBIN 10.1 g/dl (14.0-17.9); LYMPHOCYTES # (AUTO) 0.7 X10'3 (1.1-4.8); LYMPHOCYTES % (AUTO) 3.4 % (21-51); MEAN CORPUSCULAR HEMOGLOBIN 30.4 PG (27.0-31.0); MEAN CORPUSCULAR HGB CONC 32.5 g/dL (33.0-36.5); MEAN CORPUSCULAR VOLUME 93.7 FL (78-98); MEAN PLATELET VOLUME 10.7 FL (7.4-10.4); MONOCYTES # (AUTO) 1.1 X10'3 (0-0.9); MONOCYTES % (AUTO) 4.9 % (2-12); NEUTROPHILS % (AUTO) 91.5 % (42-75); PLATELET COUNT 265 X10'3 (140-440); RED BLOOD COUNT 3.31 X10'6 (4.70-6.10); RED CELL DISTRIBUTION WIDTH 13.5 % (11.5-14.5); WHITE BLOOD COUNT 21.8 X10'3 (4.5-11.0)
[2021-01-13] MEDS: insulin glargine (Lantus) pen - multi-dose SQ SCH (21:00)
[2021-01-13] MEDS: sennosides/docusate sodium tablet OGT SCH (22:25)
[2021-01-13] MEDS: lactulose 20gm/30ml cup OGT PRN (22:25)
[2021-01-14] VITALS (25 sets, daily range): BP systolic 91–130; BP diastolic 51–67
[2021-01-14] MEDS: fentaNYL/PF inj 2,500 MCG in normal saline 250ml IV soln 200 ML IV SCH ×2 (00:36→19:43)
[2021-01-14] MEDS: mineral oil/petrolatum ophthal oint EACHEYE SCH ×4 (01:12→20:00)
[2021-01-14] MEDS: insulin regular, human U-100 3ml vial - multi-dose SQ SCH ×3 (01:47→21:05)
[2021-01-14 02:37] LABS: ABG BASE EXCESS 8.5 mmol/L (-2.0-2.0); ABG HCO3 33.7 mmol/L (22.0-26.0); ABG OXYGEN SATURATION 92.8 % (94-97); ABG PCO2 (T) 48.8 mmHg (35.0-48.0); ABG PO2 (T) 64.6 mmHg (75.0-100.0); ALLEN'S TEST POSITIVE; FCOHb 0.3 % (0.0-3.9); FO2Hb 92.5 % (94-97); PATIENT TEMPERATURE 36.5; PEEP 12 cm H2O; RESPIRATORY RATE 24 b/min; TIDAL VOLUME 650 mL; TOTAL HEMOGLOBIN 11.4 G/dl (14.0-18.0)
[2021-01-14 03:16] LABS: BASOPHILS % (AUTO) 0.1 % (0-1); EOSINOPHILS % (AUTO) 0 % (0-6); HEMATOCRIT 31.2 % (42.0-52.0); LYMPHOCYTES # (AUTO) 0.5 X10'3 (1.1-4.8); LYMPHOCYTES % (AUTO) 2.3 % (21-51); MEAN CORPUSCULAR HEMOGLOBIN 30.5 PG (27.0-31.0); MEAN CORPUSCULAR HGB CONC 32.1 g/dL (33.0-36.5); MEAN CORPUSCULAR VOLUME 94.9 FL (78-98); MEAN PLATELET VOLUME 11.1 FL (7.4-10.4); MONOCYTES # (AUTO) 0.8 X10'3 (0-0.9); NEUTROPHILS # (AUTO) 18.7 X10'3 (1.8-7.7); NEUTROPHILS % (AUTO) 93.6 % (42-75); PLATELET COUNT 242 X10'3 (140-440); RED BLOOD COUNT 3.29 X10'6 (4.70-6.10); RED CELL DISTRIBUTION WIDTH 13.6 % (11.5-14.5)
[2021-01-14] MEDS: VANCOmycin 1250MG/NS 250ml Bag 250 ML IV SCH ×3 (03:17→20:00)
[2021-01-14 03:27] LABS: PARTIAL THROMBOPLASTIN TIME 28 SECONDS (22-32)
[2021-01-14 03:30] LABS: ALANINE AMINOTRANSFERASE 50 U/L (12-78); ALBUMIN 1.5 G/DL (3.4-5.0); ALBUMIN/GLOBULIN RATIO 0.5 (1.1-1.5); ALKALINE PHOSPHATASE 45 IU/L (46-116); ANION GAP 1 (8-16); ASPARTATE AMINO TRANSFERASE 25 U/L (10-37); BILIRUBIN,TOTAL 0.6 MG/DL (0.1-1.0); BLOOD UREA NITROGEN 28 MG/DL (7-18); BUN/CREATININE RATIO 57.1 (5.4-32.0); CALCIUM 7.1 MG/DL (8.5-10.1); CHLORIDE 102 MMOL/L (99-107); CREATININE 0.49 MG/DL (0.60-1.10); GLUCOSE 193 MG/DL (70-104); MAGNESIUM 2.1 MG/DL (1.5-2.4); PHOSPHORUS 3.4 MG/DL (2.3-4.5); POTASSIUM 4.1 MMOL/L (3.5-5.1); SODIUM 137 MMOL/L (135-145); TOTAL CARBON DIOXIDE 33.7 MMOL/L (24-32); TOTAL PROTEIN 4.8 G/DL (6.4-8.2); eGFR > 90 ML/MIN
[2021-01-14] MEDS: amiodarone/D5 360MG/200ML BAG 200 ML IV SCH ×4 (06:05→22:46)
[2021-01-14] MEDS: docusate sodium 100mg/10ml UD cup OGT SCH ×2 (08:00→20:00)
[2021-01-14] MEDS: K and/or MAG REPLACEMENT MC SCH (08:00)
[2021-01-14] MEDS: nystatin 15 GM powder TP SCH ×2 (08:00→20:00)
[2021-01-14] MEDS: methylnaltrexone br 12mg/0.6ml inj***SubQ only SQ SCH (09:00)
[2021-01-14] MEDS: lactobacillus rhamnosus 10,000 MMU CELLS/CAPSULE OGT SCH ×2 (09:28→20:00)
[2021-01-14] MEDS: methylPREDNISolone sod succ/PF 40mg inj. IV SCH ×3 (09:29→16:29)
[2021-01-14] MEDS: pantoprazole 40 MG vial IV SCH (09:29)
[2021-01-14] MEDS: enoxaparin 80mg/0.8ml syringe SUBCUT SCH ×2 (09:30→20:00)
[2021-01-14] MEDS ORDERED: magnesium citrate 296ml oral solution PO ONE (11:00)
--- NOTE | 2021-01-14 14:00 | NUR ---
F/u 01/14: Pt still with no BM since 01/02 despite multiple interventions, d/w MD. Pt to receive one time dose of Mag Citrate today per MD. Noted pt no longer receiving Relistor. Addendum: 01/14/21 at [address] Amended: Links added.
[2021-01-14] MEDS: NORepinephrine 8mg/ 250ml NS 250 ML IV SCH (14:23)
[2021-01-14] MEDS ORDERED: ondansetron 4mg rapidly disintigrating tab PO PRN (14:55)
[2021-01-14] MEDS: midazolam 100mg in NS 100 ML INFUSION IV PRN (20:15)
[2021-01-14] MEDS: sennosides/docusate sodium tablet OGT SCH (21:00)
[2021-01-14] MEDS: insulin glargine (Lantus) pen - multi-dose SQ SCH (21:04)
[2021-01-15] VITALS (25 sets, daily range): BP systolic 96–126; BP diastolic 52–63
[2021-01-15] MEDS: mineral oil/petrolatum ophthal oint EACHEYE SCH ×4 (01:33→19:35)
[2021-01-15] MEDS: NORepinephrine 8mg/ 250ml NS 250 ML IV SCH (01:34)
[2021-01-15] MEDS: insulin regular, human U-100 3ml vial - multi-dose SQ SCH (01:53)
[2021-01-15 02:06] LABS: BASOPHILS # (AUTO) 0.1 X10'3 (0-0.2); BASOPHILS % (AUTO) 0.3 % (0-1); EOSINOPHILS % (AUTO) 0 % (0-6); HEMATOCRIT 30.1 % (42.0-52.0); HEMOGLOBIN 9.7 g/dl (14.0-17.9); LYMPHOCYTES # (AUTO) 0.6 X10'3 (1.1-4.8); LYMPHOCYTES % (AUTO) 2.3 % (21-51); MEAN CORPUSCULAR HEMOGLOBIN 30.4 PG (27.0-31.0); MEAN PLATELET VOLUME 10.1 FL (7.4-10.4); MONOCYTES # (AUTO) 0.7 X10'3 (0-0.9); MONOCYTES % (AUTO) 2.8 % (2-12); NEUTROPHILS # (AUTO) 23.6 X10'3 (1.8-7.7); NEUTROPHILS % (AUTO) 94.6 % (42-75); PLATELET COUNT 241 X10'3 (140-440); RED BLOOD COUNT 3.17 X10'6 (4.70-6.10); RED CELL DISTRIBUTION WIDTH 13.7 % (11.5-14.5); WHITE BLOOD COUNT 24.9 X10'3 (4.5-11.0)
[2021-01-15 02:17] LABS: TOTAL CELLS COUNTED 100
[2021-01-15 02:18] LABS: PARTIAL THROMBOPLASTIN TIME 29 SECONDS (22-32)
[2021-01-15 02:20] LABS: ALANINE AMINOTRANSFERASE 67 U/L (12-78); ALBUMIN 1.3 G/DL (3.4-5.0); ALBUMIN/GLOBULIN RATIO 0.4 (1.1-1.5); ALKALINE PHOSPHATASE 45 IU/L (46-116); ANION GAP 0 (8-16); ASPARTATE AMINO TRANSFERASE 32 U/L (10-37); BILIRUBIN,TOTAL 0.4 MG/DL (0.1-1.0); BLOOD UREA NITROGEN 23 MG/DL (7-18); BUN/CREATININE RATIO 53.5 (5.4-32.0); CALCIUM 7.1 MG/DL (8.5-10.1); CHLORIDE 104 MMOL/L (99-107); CREATININE 0.43 MG/DL (0.60-1.10); GLUCOSE 95 MG/DL (70-104); MAGNESIUM 2.3 MG/DL (1.5-2.4); PHOSPHORUS 3.4 MG/DL (2.3-4.5); POTASSIUM 4.7 MMOL/L (3.5-5.1); SODIUM 139 MMOL/L (135-145); TOTAL CARBON DIOXIDE 34.9 MMOL/L (24-32); TOTAL PROTEIN 4.6 G/DL (6.4-8.2); eGFR > 90 ML/MIN
[2021-01-15 02:44] LABS: PLATELET ESTIMATE NORMAL; POIKILOCYTOSIS FEW
[2021-01-15 02:45] LABS: POLYCHROMASIA FEW
[2021-01-15 03:22] LABS: ABG BASE EXCESS 10.3 mmol/L (-2.0-2.0); ABG HCO3 38.2 mmol/L (22.0-26.0); ABG OXYGEN SATURATION 94.7 % (94-97); ABG PCO2 (T) 71.5 mmHg (35.0-48.0); ABG PO2 (T) 80.5 mmHg (75.0-100.0); ALLEN'S TEST POSITIVE; FCOHb 0.3 % (0.0-3.9); FMetHb 0.1 % (0.0-1.5); FO2Hb 94.3 % (94-97); PATIENT TEMPERATURE 37.2; PEEP 14 cm H2O; TIDAL VOLUME 450 mL; TOTAL HEMOGLOBIN 11.1 G/dl (14.0-18.0)
[2021-01-15] MEDS: VANCOmycin 1250MG/NS 250ml Bag 250 ML IV SCH ×3 (04:03→20:48)
[2021-01-15] MEDS: fentaNYL/PF inj 2,500 MCG in normal saline 250ml IV soln 200 ML IV SCH ×2 (04:04→16:03)
[2021-01-15] MEDS: K and/or MAG REPLACEMENT MC SCH ×2 (08:00→20:00)
[2021-01-15] MEDS: enoxaparin 80mg/0.8ml syringe SUBCUT SCH ×2 (08:00→20:48)
[2021-01-15] MEDS: pantoprazole 40 MG vial IV SCH (08:46)
[2021-01-15] MEDS: lactobacillus rhamnosus 10,000 MMU CELLS/CAPSULE OGT SCH ×2 (08:46→20:48)
[2021-01-15] MEDS: methylPREDNISolone sod succ/PF 40mg inj. IV SCH ×3 (08:46→20:47)
[2021-01-15] MEDS: nystatin 15 GM powder TP SCH ×2 (08:46→20:48)
[2021-01-15] MEDS: docusate sodium 100mg/10ml UD cup OGT SCH ×2 (08:47→20:48)
[2021-01-15] MEDS: amiodarone/D5 360MG/200ML BAG 200 ML IV SCH ×2 (12:26→21:08)
[2021-01-15] MEDS ORDERED: albumin (Human) 5% 250ml 250 ML IV ONE (13:00)
[2021-01-15] MEDS: CEFEPIME 2gm in D5W 50mL 50 ML IV SCH ×2 (16:02→23:37)
[2021-01-15] MEDS: midazolam 100mg in NS 100 ML INFUSION IV PRN (19:34)
[2021-01-15] MEDS: sennosides/docusate sodium tablet OGT SCH (20:48)
[2021-01-15] MEDS: insulin glargine (Lantus) pen - multi-dose SQ SCH (20:49)
[2021-01-16] VITALS (24 sets, daily range): BP systolic 96–141; BP diastolic 52–69
[2021-01-16] MEDS: amiodarone/D5 360MG/200ML BAG 200 ML IV SCH ×3 (00:05→14:45)
[2021-01-16] MEDS: mineral oil/petrolatum ophthal oint EACHEYE SCH ×4 (02:33→20:00)
[2021-01-16 02:56] LABS: BASOPHILS % (AUTO) 0 % (0-1); EOSINOPHILS % (AUTO) 0 % (0-6); HEMATOCRIT 29.4 % (42.0-52.0); HEMOGLOBIN 9.4 g/dl (14.0-17.9); LYMPHOCYTES # (AUTO) 0.5 X10'3 (1.1-4.8); LYMPHOCYTES % (AUTO) 1.6 % (21-51); MEAN CORPUSCULAR HEMOGLOBIN 30.4 PG (27.0-31.0); MEAN CORPUSCULAR HGB CONC 31.9 g/dL (33.0-36.5); MEAN CORPUSCULAR VOLUME 95.1 FL (78-98); MEAN PLATELET VOLUME 10.2 FL (7.4-10.4); MONOCYTES # (AUTO) 0.7 X10'3 (0-0.9); MONOCYTES % (AUTO) 2.4 % (2-12); NEUTROPHILS # (AUTO) 29.8 X10'3 (1.8-7.7); PLATELET COUNT 256 X10'3 (140-440); RED BLOOD COUNT 3.09 X10'6 (4.70-6.10); RED CELL DISTRIBUTION WIDTH 13.8 % (11.5-14.5)
[2021-01-16 03:07] LABS: ALANINE AMINOTRANSFERASE 56 U/L (12-78); ALBUMIN 1.5 G/DL (3.4-5.0); ALBUMIN/GLOBULIN RATIO 0.4 (1.1-1.5); ALKALINE PHOSPHATASE 54 IU/L (46-116); ANION GAP 1 (8-16); ASPARTATE AMINO TRANSFERASE 23 U/L (10-37); BILIRUBIN,TOTAL 0.6 MG/DL (0.1-1.0); BLOOD UREA NITROGEN 20 MG/DL (7-18); BUN/CREATININE RATIO 43.5 (5.4-32.0); CALCIUM 7.5 MG/DL (8.5-10.1); CHLORIDE 101 MMOL/L (99-107); CREATININE 0.46 MG/DL (0.60-1.10); GLUCOSE 119 MG/DL (70-104); MAGNESIUM 2.2 MG/DL (1.5-2.4); PARTIAL THROMBOPLASTIN TIME 27 SECONDS (22-32); PHOSPHORUS 3.8 MG/DL (2.3-4.5); POTASSIUM 4.5 MMOL/L (3.5-5.1); SODIUM 139 MMOL/L (135-145); TOTAL CARBON DIOXIDE 36.6 MMOL/L (24-32); TOTAL PROTEIN 5.1 G/DL (6.4-8.2); TRIGLYCERIDES 104 MG/DL (20-135); eGFR > 90 ML/MIN
[2021-01-16 03:08] LABS: WHITE BLOOD COUNT 31.1 X10'3 (4.5-11.0)
[2021-01-16] MEDS: VANCOmycin 1250MG/NS 250ml Bag 250 ML IV SCH (04:08)
[2021-01-16 04:13] LABS: TOTAL CELLS COUNTED 100
[2021-01-16 04:14] LABS: PLATELET ESTIMATE NORMAL
[2021-01-16 04:15] LABS: POLYCHROMASIA FEW
[2021-01-16 05:14] LABS: ABG HCO3 35.2 mmol/L (22.0-26.0); ABG OXYGEN SATURATION 95.7 % (94-97); ABG PCO2 (T) 56.9 mmHg (35.0-48.0); ABG PO2 (T) 82.1 mmHg (75.0-100.0); ALLEN'S TEST POSITIVE; FCOHb 0.3 % (0.0-3.9); FMetHb 0.3 % (0.0-1.5); FO2Hb 95.1 % (94-97); PEEP 14 cm H2O; RESPIRATORY RATE 24 b/min; TIDAL VOLUME 450 mL; TOTAL HEMOGLOBIN 10.5 G/dl (14.0-18.0)
[2021-01-16] MEDS: K and/or MAG REPLACEMENT MC SCH ×2 (08:00→20:00)
[2021-01-16] MEDS ORDERED: metroNIDAZOLE-Flagyl 500mg/NS 100 ML IV SCH (08:00)
[2021-01-16] MEDS: methylPREDNISolone sod succ/PF 40mg inj. IV SCH ×2 (08:52→20:00)
[2021-01-16] MEDS: CEFEPIME 2gm in D5W 50mL 50 ML IV SCH (08:52)
[2021-01-16] MEDS: pantoprazole 40 MG vial IV SCH (08:52)
[2021-01-16] MEDS: clindamycin 600mg/D5W 50ml 50 ML IV SCH ×3 (08:52→20:00)
[2021-01-16] MEDS: nystatin 15 GM powder TP SCH ×2 (08:53→20:00)
[2021-01-16] MEDS: enoxaparin 80mg/0.8ml syringe SUBCUT SCH ×2 (08:53→20:00)
[2021-01-16] MEDS: docusate sodium 100mg/10ml UD cup OGT SCH ×2 (08:53→20:00)
[2021-01-16] MEDS: lactobacillus rhamnosus 10,000 MMU CELLS/CAPSULE OGT SCH ×2 (08:53→20:00)
[2021-01-16] MEDS ORDERED: sodium chloride inj. 154 MEQ in Dextrose 10%-water IV solution 961.5 ML IV SCH (11:25)
[2021-01-16] MEDS ORDERED: magnesium citrate 296ml oral solution PO ONE (11:35)
[2021-01-16] MEDS ORDERED: SODIUM CL IRRIG RC ONE (11:40)
[2021-01-16] MEDS ORDERED: LACTULOSE RC ONE (11:40)
--- NOTE | 2021-01-16 12:18 | NUR ---
Reassessment: Pt remains intubated. TF has been held since 01/14. Per MD at critical care rounds pt with emesis following administration of Mag Citrate. Noted pt with a low blood sugar of 39 mg/dL 01/15 at 08:30 which was still low at f/u check at 15:43 (64 mg/dL), notified MD and requested pt receive dextrose given low BG levels and pt currently not receiving any nutrition as TF is being held at this time. Pt to start on D10, nurse discharge to update EMR. Pt still with no BM since 01/02, receiving routine bowel care. Pt s/p KUB this morning which showed "gaseous distention of predominantly large bowel, with stool in left colon and rectum. Findings may represent ileus" per report. Per MD at critical care rounds pt to receive one time dose of Mag Citrate today, enema, and start on routine Relistor. Will continue to follow closely. Recommendations: 1) Continuous TF via OGT using Vital AF with 75 mL/hr goal rate to provide 1800 mL total volume/day, 2160 kcal, 135 g protein, and 1460 mL water; resume as medically indicated per MD 2) Monitor for scaled weight and adjust TF recommendations as appropriate 3) Additional 100 mL water flush Q6H per MD; monitor serum Na and need to adjust 4) Prealbumin q Tuesday/ 5) Daily scaled weights 6) Routine bowel care; routine opioid antagonist given no BM x 14 days 7) BSS with ST prior to PO diet advancement following extubation; previously on pureed food with thin liquids per ST 01/01; recommend regular diet in view of poor PO intake hx Addendum: 01/16/21 at [address] Amended: Links added.
[2021-01-16] MEDS: mineral oil 133ml enema RC SCH ×2 (14:44→20:00)
[2021-01-16] MEDS: NORepinephrine 8mg/ 250ml NS 250 ML IV SCH ×2 (14:46→15:57)
[2021-01-16] MEDS: fentaNYL/PF inj 2,500 MCG in normal saline 250ml IV soln 200 ML IV SCH (14:46)
[2021-01-16] MEDS: methylnaltrexone br 12mg/0.6ml inj***SubQ only SQ SCH (15:56)
[2021-01-16] MEDS: cefepime inj 2 GM in normal saline 100ml IV soln 100 ML IV SCH (16:59)
--- NOTE | 2021-01-16 18:08 | NUR ---
0800 - Pt tubing changed out per facility protocol 0900 -PICC nurse placed new PICC line in RUE 1400 -Enema administered, pt did not tolerate well, O2 desaturated to 69% , bagged pt and ordered stat CXR, notified. 1500 -All tubing changed out, connected to new PICC line 1600 - Old PICC line removed 1630- MD notified of IV incompatibilities, need more access to receive continue D10 1700 - FMS inserted, lactulose inserted and clamped, some return during. 1730 - Bed bath given, Pericare done, Full Linen change 1800 - Report given to oncoming nurse.
[2021-01-16] MEDS: insulin glargine (Lantus) pen - multi-dose SQ SCH (21:00)
[2021-01-16] MEDS: sennosides/docusate sodium tablet OGT SCH (21:33)
[2021-01-17] VITALS (24 sets, daily range): BP systolic 96–155; BP diastolic 50–77
[2021-01-17] MEDS: amiodarone/D5 360MG/200ML BAG 200 ML IV SCH ×5 (00:05→18:05)
[2021-01-17] MEDS: cefepime inj 2 GM in normal saline 100ml IV soln 100 ML IV SCH ×4 (00:32→23:05)
[2021-01-17 01:39] LABS: BASOPHILS % (AUTO) 0.1 % (0-1); EOSINOPHILS % (AUTO) 0.1 % (0-6); HEMATOCRIT 30.2 % (42.0-52.0); HEMOGLOBIN 9.8 g/dl (14.0-17.9); LYMPHOCYTES # (AUTO) 0.3 X10'3 (1.1-4.8); LYMPHOCYTES % (AUTO) 1.2 % (21-51); MEAN CORPUSCULAR HEMOGLOBIN 30.6 PG (27.0-31.0); MEAN CORPUSCULAR HGB CONC 32.6 g/dL (33.0-36.5); MEAN CORPUSCULAR VOLUME 93.9 FL (78-98); MEAN PLATELET VOLUME 9.2 FL (7.4-10.4); MONOCYTES # (AUTO) 0.9 X10'3 (0-0.9); MONOCYTES % (AUTO) 3.4 % (2-12); NEUTROPHILS % (AUTO) 95.2 % (42-75); PLATELET COUNT 281 X10'3 (140-440); RED BLOOD COUNT 3.22 X10'6 (4.70-6.10); RED CELL DISTRIBUTION WIDTH 13.2 % (11.5-14.5)
[2021-01-17 01:52] LABS: WHITE BLOOD COUNT 25.2 X10'3 (4.5-11.0)
[2021-01-17] MEDS: clindamycin 600mg/D5W 50ml 50 ML IV SCH ×4 (02:09→20:00)
[2021-01-17] MEDS: mineral oil/petrolatum ophthal oint EACHEYE SCH ×4 (02:09→20:00)
[2021-01-17] MEDS: vancomycin 125mg/5ml ORAL solution 5ml UD oral syringe PO SCH ×4 (02:14→20:00)
[2021-01-17] MEDS: fentaNYL/PF inj 2,500 MCG in normal saline 250ml IV soln 200 ML IV SCH (02:23)
[2021-01-17] MEDS: NORepinephrine 8mg/ 250ml NS 250 ML IV SCH ×2 (03:02→23:53)
[2021-01-17 03:58] LABS: ABG BASE EXCESS 9.1 mmol/L (-2.0-2.0); ABG HCO3 36.4 mmol/L (22.0-26.0); ABG OXYGEN SATURATION 92.5 % (94-97); ABG PCO2 (T) 63.2 mmHg (35.0-48.0); ABG PO2 (T) 65.6 mmHg (75.0-100.0); ALLEN'S TEST POSITIVE; FCOHb 0.3 % (0.0-3.9); FO2Hb 92.2 % (94-97); PATIENT TEMPERATURE 36.1; PEEP 14 cm H2O; RESPIRATORY RATE 24 b/min; TIDAL VOLUME 450 mL; TOTAL HEMOGLOBIN 10.4 G/dl (14.0-18.0)
[2021-01-17 04:43] LABS: TOTAL CELLS COUNTED 100
[2021-01-17 04:44] LABS: PLATELET ESTIMATE NORMAL; SMUDGE CELLS 2+
[2021-01-17 04:45] LABS: ANISOCYTOSIS FEW; POLYCHROMASIA FEW; TOXIC GRANULATION 1+
[2021-01-17 04:46] LABS: HYPERSEGMENTED NEUTROPHILS 1+
[2021-01-17] MEDS: K and/or MAG REPLACEMENT MC SCH ×2 (08:00→20:00)
[2021-01-17] MEDS: pantoprazole 40 MG vial IV SCH (08:50)
[2021-01-17] MEDS: lactobacillus rhamnosus 10,000 MMU CELLS/CAPSULE OGT SCH ×2 (08:50→20:00)
[2021-01-17] MEDS: enoxaparin 80mg/0.8ml syringe SUBCUT SCH ×2 (08:50→20:00)
[2021-01-17] MEDS: methylPREDNISolone sod succ/PF 40mg inj. IV SCH ×2 (08:50→20:00)
[2021-01-17] MEDS: docusate sodium 100mg/10ml UD cup OGT SCH ×2 (08:51→20:00)
[2021-01-17] MEDS: nystatin 15 GM powder TP SCH ×2 (08:51→20:00)
[2021-01-17] MEDS: Dextrose 10%-water IV solution 1,000 ML IV SCH ×2 (13:20→23:20)
[2021-01-17] MEDS: CISatracurium besylate inj. 100 MG in normal saline 100ml IV soln 90 ML IV PRN (16:24)
[2021-01-17] MEDS: insulin glargine (Lantus) pen - multi-dose SQ SCH (21:00)
[2021-01-17] MEDS: sennosides/docusate sodium tablet OGT SCH (21:46)
[2021-01-17] MEDS: midazolam 100mg in NS 100 ML INFUSION IV PRN (22:47)
[2021-01-18] VITALS (23 sets, daily range): BP systolic 93–118; BP diastolic 48–66
[2021-01-18] MEDS: amiodarone/D5 360MG/200ML BAG 200 ML IV SCH ×5 (00:05→17:15)
[2021-01-18] MEDS: mineral oil/petrolatum ophthal oint EACHEYE SCH ×4 (01:36→20:11)
[2021-01-18] MEDS: vancomycin 125mg/5ml ORAL solution 5ml UD oral syringe PO SCH ×4 (01:36→20:20)
[2021-01-18] MEDS: clindamycin 600mg/D5W 50ml 50 ML IV SCH ×4 (01:37→20:09)
[2021-01-18 02:58] LABS: BASOPHILS # (AUTO) 0.1 X10'3 (0-0.2); BASOPHILS % (AUTO) 0.5 % (0-1); EOSINOPHILS % (AUTO) 0.1 % (0-6); HEMATOCRIT 29.4 % (42.0-52.0); HEMOGLOBIN 9.4 g/dl (14.0-17.9); LYMPHOCYTES # (AUTO) 0.2 X10'3 (1.1-4.8); LYMPHOCYTES % (AUTO) 0.9 % (21-51); MEAN CORPUSCULAR HEMOGLOBIN 30.4 PG (27.0-31.0); MEAN CORPUSCULAR HGB CONC 32.1 g/dL (33.0-36.5); MEAN CORPUSCULAR VOLUME 94.7 FL (78-98); MEAN PLATELET VOLUME 9.9 FL (7.4-10.4); MONOCYTES # (AUTO) 0.4 X10'3 (0-0.9); MONOCYTES % (AUTO) 1.5 % (2-12); NEUTROPHILS # (AUTO) 23.6 X10'3 (1.8-7.7); PLATELET COUNT 261 X10'3 (140-440); RED CELL DISTRIBUTION WIDTH 13.8 % (11.5-14.5); WHITE BLOOD COUNT 24.3 X10'3 (4.5-11.0)
[2021-01-18 04:06] LABS: ABG BASE EXCESS 7.9 mmol/L (-2.0-2.0); ABG HCO3 35.7 mmol/L (22.0-26.0); ABG OXYGEN SATURATION 95.2 % (94-97); ABG PCO2 (T) 68.5 mmHg (35.0-48.0); ABG PO2 (T) 80.6 mmHg (75.0-100.0); ALLEN'S TEST POSITIVE; FCOHb 0.3 % (0.0-3.9); FMetHb 0.3 % (0.0-1.5); FO2Hb 94.6 % (94-97); PATIENT TEMPERATURE 36.3; PEEP 18 cm H2O; RESPIRATORY RATE 24 b/min; TIDAL VOLUME 450 mL; TOTAL HEMOGLOBIN 10.3 G/dl (14.0-18.0)
[2021-01-18 04:13] LABS: TOTAL CELLS COUNTED 100
[2021-01-18 04:14] LABS: ANISOCYTOSIS FEW; PLATELET ESTIMATE NORMAL; POLYCHROMASIA FEW; STOMATOCYTES FEW
[2021-01-18] MEDS: fentaNYL/PF inj 2,500 MCG in normal saline 250ml IV soln 200 ML IV SCH ×2 (04:22→15:23)
--- NOTE | 2021-01-18 06:30 | NUR ---
Patient in room CICU 2007. I have received report from and had the opportunity to ask questions and assume patient care.
[2021-01-18] MEDS: nystatin 15 GM powder TP SCH ×2 (08:00→20:10)
[2021-01-18] MEDS: cefepime inj 2 GM in dextrose 5%-water 50ml 50 ML IV SCH ×3 (08:00→23:57)
[2021-01-18] MEDS: K and/or MAG REPLACEMENT MC SCH ×2 (08:00→20:00)
[2021-01-18 08:23] LABS: ALANINE AMINOTRANSFERASE 33 U/L (12-78); ALBUMIN 1.3 G/DL (3.4-5.0); ALBUMIN/GLOBULIN RATIO 0.4 (1.1-1.5); ALKALINE PHOSPHATASE 66 IU/L (46-116); ANION GAP -1 (8-16); ASPARTATE AMINO TRANSFERASE 14 U/L (10-37); BILIRUBIN,TOTAL 0.4 MG/DL (0.1-1.0); BLOOD UREA NITROGEN 17 MG/DL (7-18); BUN/CREATININE RATIO 40.5 (5.4-32.0); CALCIUM 7.5 MG/DL (8.5-10.1); CHLORIDE 101 MMOL/L (99-107); CREATININE 0.42 MG/DL (0.60-1.10); GLUCOSE 142 MG/DL (70-104); POTASSIUM 4.5 MMOL/L (3.5-5.1); SODIUM 136 MMOL/L (135-145); TOTAL CARBON DIOXIDE 35.9 MMOL/L (24-32); eGFR > 90 ML/MIN
[2021-01-18] MEDS: docusate sodium 100mg/10ml UD cup OGT SCH ×2 (08:59→20:20)
[2021-01-18] MEDS: enoxaparin 80mg/0.8ml syringe SUBCUT SCH ×2 (08:59→20:09)
[2021-01-18] MEDS: pantoprazole 40 MG vial IV SCH (09:02)
[2021-01-18] MEDS: lactobacillus rhamnosus 10,000 MMU CELLS/CAPSULE OGT SCH ×2 (09:02→20:10)
[2021-01-18] MEDS: methylnaltrexone br 12mg/0.6ml inj***SubQ only SQ SCH (09:02)
[2021-01-18] MEDS: methylPREDNISolone sod succ/PF 40mg inj. IV SCH ×2 (09:02→20:09)
[2021-01-18] MEDS: Dextrose 10%-water IV solution 1,000 ML IV SCH ×2 (09:20→19:20)
--- NOTE | 2021-01-18 09:57 | NUR ---
TPN consult: Received TC from Pharmacist, pt to start on TPN per MD as pt unable to have BM since 01/02 and TF have been off since 01/14. Pt has received multiple bowel care meds though still no BM. TPN recs below, will continue to monitor. Recommendations: 1) Continuous TPN per MD using 2:1 Clinimix-E 08/07 with goal rate of 100 mL/hr with additional 100 mL 20% intralipids to run at 8.33 mL/hr for 12 hours/day. In total to provide 2500 mL total volume/day, 2312 kcal, 120 g AA, 480 g dextrose (3.52 mg/kg/min GIR), and 20 g lipids. 2) Once bowel function returns, Continuous TF via OGT using Vital AF with 75 mL/hr goal 4) Prealbumin q Tuesday/ 5) Daily scaled weights 6) Routine bowel care; routine opioid antagonist given no BM x 14 days 7) Discontinue D10 once TPN begins 8) BSS with ST prior to PO diet advancement following extubation; previously on pureed food with thin liquids per ST 01/01; recommend regular diet in view of poor PO intake hx Addendum: 01/18/21 at [address] Amended: Links added.
[2021-01-18] MEDS: midazolam 100mg in NS 100 ML INFUSION IV PRN (11:14)
[2021-01-18] MEDS: CISatracurium besylate inj. 100 MG in normal saline 100ml IV soln 90 ML IV PRN (14:34)
[2021-01-18] MEDS: NORepinephrine 8mg/ 250ml NS 250 ML IV SCH (16:11)
--- NOTE | 2021-01-18 18:50 | NUR ---
Problems reprioritized. Patient report given, questions answered & plan of care reviewed with Nuris CHAU.
--- NOTE | 2021-01-18 19:09 | NUR ---
Patient in room CICU 2008. I have received report from Katherine CHAU and had the opportunity to ask questions and assume patient care. Out of ratio per [place] nurse to patient ratio law, currently assigned 3 ICU patients on ventilators, multiple titratable IV drips, including 2 of the patients being on vasopressors. Addendum: 01/18/21 at 1911 by Nuris Gonzales RN Amended: Links added.
[2021-01-18] MEDS: sennosides/docusate sodium tablet OGT SCH (20:52)
[2021-01-18] MEDS: insulin glargine (Lantus) pen - multi-dose SQ SCH (21:00)
[2021-01-18] MEDS ORDERED: ZINC/COPPER/MANGANESE/SELENIUM 1 ML, chromic chloride inj. 10 MCG in AA 5%/CALCIUM/LYTE... IV SCH (21:00)
[2021-01-18] MEDS ORDERED: fat emulsion 20% inj. 100 ML IV SCH (21:00)
[2021-01-19] VITALS (16 sets, daily range): BP systolic 96–128; BP diastolic 54–67
[2021-01-19] MEDS: amiodarone/D5 360MG/200ML BAG 200 ML IV SCH ×3 (00:05→12:05)
[2021-01-19] MEDS ORDERED: cefepime inj 2 GM in normal saline 100ml IV soln 100 ML IV SCH (01:05)
[2021-01-19] MEDS: vancomycin 125mg/5ml ORAL solution 5ml UD oral syringe PO SCH ×3 (02:31→13:46)
[2021-01-19] MEDS: clindamycin 600mg/D5W 50ml 50 ML IV SCH ×3 (02:31→13:46)
[2021-01-19] MEDS: midazolam 100mg in NS 100 ML INFUSION IV PRN (02:32)
[2021-01-19] MEDS: mineral oil/petrolatum ophthal oint EACHEYE SCH ×3 (02:34→14:30)
[2021-01-19 03:18] LABS: BASOPHILS # (AUTO) 0.1 X10'3 (0-0.2); BASOPHILS % (AUTO) 0.3 % (0-1); EOSINOPHILS % (AUTO) 0 % (0-6); HEMATOCRIT 28.5 % (42.0-52.0); HEMOGLOBIN 9.3 g/dl (14.0-17.9); LYMPHOCYTES # (AUTO) 0.3 X10'3 (1.1-4.8); MEAN CORPUSCULAR HEMOGLOBIN 30.8 PG (27.0-31.0); MEAN CORPUSCULAR HGB CONC 32.4 g/dL (33.0-36.5); MEAN CORPUSCULAR VOLUME 94.8 FL (78-98); MEAN PLATELET VOLUME 9.5 FL (7.4-10.4); MONOCYTES # (AUTO) 0.4 X10'3 (0-0.9); MONOCYTES % (AUTO) 1.6 % (2-12); NEUTROPHILS % (AUTO) 97.1 % (42-75); PLATELET COUNT 282 X10'3 (140-440); RED BLOOD COUNT 3.01 X10'6 (4.70-6.10); RED CELL DISTRIBUTION WIDTH 13.7 % (11.5-14.5)
[2021-01-19 03:23] LABS: ABG BASE EXCESS 10.4 mmol/L (-2.0-2.0); ABG HCO3 38.5 mmol/L (22.0-26.0); ABG OXYGEN SATURATION 98.2 % (94-97); ABG PCO2 (T) 74.5 mmHg (35.0-48.0); ABG PO2 (T) 120.4 mmHg (75.0-100.0); ALLEN'S TEST POSITIVE; FCOHb 0.3 % (0.0-3.9); FMetHb 0.2 % (0.0-1.5); FO2Hb 97.7 % (94-97); PATIENT TEMPERATURE 36.5; PEEP 18 cm H2O; RESPIRATORY RATE 24 b/min; TIDAL VOLUME 450 mL; TOTAL HEMOGLOBIN 9.8 G/dl (14.0-18.0)
[2021-01-19 03:31] LABS: WHITE BLOOD COUNT 28.8 X10'3 (4.5-11.0)
[2021-01-19 03:33] LABS: ALANINE AMINOTRANSFERASE 34 U/L (12-78); ALBUMIN 1.3 G/DL (3.4-5.0); ALBUMIN/GLOBULIN RATIO 0.3 (1.1-1.5); ALKALINE PHOSPHATASE 49 IU/L (46-116); ANION GAP 1 (8-16); ASPARTATE AMINO TRANSFERASE 14 U/L (10-37); BILIRUBIN,TOTAL 0.5 MG/DL (0.1-1.0); BLOOD UREA NITROGEN 20 MG/DL (7-18); CALCIUM 7.7 MG/DL (8.5-10.1); CHLORIDE 100 MMOL/L (99-107); GLUCOSE 191 MG/DL (70-104); MAGNESIUM 2.1 MG/DL (1.5-2.4); PHOSPHORUS 3.4 MG/DL (2.3-4.5); POTASSIUM 4.7 MMOL/L (3.5-5.1); SODIUM 137 MMOL/L (135-145); TOTAL CARBON DIOXIDE 35.7 MMOL/L (24-32); TOTAL PROTEIN 5.2 G/DL (6.4-8.2); eGFR > 90 ML/MIN
[2021-01-19] MEDS: Dextrose 10%-water IV solution 1,000 ML IV SCH (03:41)
[2021-01-19 04:55] LABS: ANISOCYTOSIS FEW; PLATELET ESTIMATE NORMAL; POLYCHROMASIA FEW; TOTAL CELLS COUNTED 100
--- NOTE | 2021-01-19 06:30 | NUR ---
Problems reprioritized. Patient report given, questions answered & plan of care reviewed with Katherine CHAU.
--- NOTE | 2021-01-19 06:30 | NUR ---
Patient in room CICU 2008. I have received report from Nuris Zendejas and had the opportunity to ask questions and assume patient care.
[2021-01-19] MEDS: K and/or MAG REPLACEMENT MC SCH (08:00)
[2021-01-19] MEDS ORDERED: MVI, adult No.4 with vit. K 10 ML in dextrose 5% water 500ml 500 ML IV SCH ×2 (08:00)
[2021-01-19] MEDS: NORepinephrine 8mg/ 250ml NS 250 ML IV SCH (08:29)
[2021-01-19] MEDS: pantoprazole 40 MG vial IV SCH (08:37)
[2021-01-19] MEDS: enoxaparin 80mg/0.8ml syringe SUBCUT SCH (08:37)
[2021-01-19] MEDS: docusate sodium 100mg/10ml UD cup OGT SCH (08:37)
[2021-01-19] MEDS: lactobacillus rhamnosus 10,000 MMU CELLS/CAPSULE OGT SCH (08:37)
[2021-01-19] MEDS: methylPREDNISolone sod succ/PF 40mg inj. IV SCH (08:37)
[2021-01-19] MEDS: nystatin 15 GM powder TP SCH (08:38)
--- NOTE | 2021-01-19 11:32 | NUR ---
F/u 01/19: Pt TPN started last night 01/18 currently at 30ml/hr tolerating without signs of refeeding. Still no BM 16 days receiving multiple routine bowel care meds and opioid antagonist. Pending family meeting per RN at rounds. Will continue to monitor for nutrition support tolerance and adjustment needs. Recommendations: 1) Continuous TPN per MD using 2:1 Clinimix-E 08/07 with goal rate of 100 mL/hr with additional 100 mL 20% intralipids to run at 8.33 mL/hr for 12 hours/day. In total to provide 2500 mL total volume/day, 2312 kcal, 120 g AA, 480 g dextrose (3.52 mg/kg/min dex loading), and 20 g lipids. 2) Once bowel function returns, Continuous TF via OGT using Vital AF with 75 mL/hr goal 3) Prealbumin q Tuesday/; Daily scaled weights 4) Routine bowel care; no BM 16 days receiving multiple routine bowel care medications including opioid antagonist s/p multiple doses of enemas and mag citrate as well as lactulose Addendum: 01/19/21 at [address] Amended: Links added.
[2021-01-19] MEDS: fentaNYL/PF inj 2,500 MCG in normal saline 250ml IV soln 200 ML IV SCH (13:46)
[2021-01-19] MEDS: insulin regular, human U-100 3ml vial - multi-dose SQ SCH (13:54)
--- NOTE | 2021-01-19 14:45 | NUR ---
Roberta called wishes to make her father comfort care, Dr. Hook spoke to daughter to confirm this.
--- NOTE | 2021-01-19 15:28 | NUR ---
called [facility] [phone] tt Kacie and kita ref # [id number] patient is only eleigble for skin donation, call back with alexei
--- NOTE | 2021-01-19 16:21 | NUR ---
patient extubated [id number] patient [id number] called daughter Meena [phone], to notify left message requesting a return call
--- NOTE | 2021-01-19 16:28 | NUR ---
daughter returned call she does not know which mortuary she would like to use she will all us back
--- NOTE | 2021-01-19 16:28 | NUR ---
called donor [facility] back they stated he not eligible for skin or organ donation
--- NOTE | 2021-01-19 16:40 | NUR ---
RN IS TO DOCUMENT YES TO ALL APPLICABLE AREAS Pronouncement of : 1. Time Physician Notified: 1640 2. Date of : 01/19/2021 3. Time of : 1613 4. DNR/Withdraw life support documented:yes 5. Monitor strip has been placed on chart:yes 6. Assessment process is of one-minute duration and includes following criteria: a) Patient is unresponsive to all stimuli: yes b) Pupils fixed and non-reactive:yes c) Auscultation of precordium reveals absence of heart tones:yes d) Auscultation of lungs reveals absence of breath sounds:yes e) Absence of blood pressure / all vital signs:yes f) QRS complexes are not present on monitor / EKG strip:yes g) Pacer spikes without capture:yes 4. Comments: no heart or breath sounds auscultated, ekg asystole
--- NOTE | 2021-01-19 17:43 | NUR ---
left message for daughter to call back, need to know which [facility] she would like to use
--- NOTE | 2021-01-19 18:25 | NUR ---
Patient in room CICU 2008. I have received report from Katherine CHAU and had the opportunity to ask questions and assume patient care. Left message for patient's daughter Meena to call regarding mortuary choice.
--- NOTE | 2021-01-19 19:18 | NUR ---
Spoke with Daughter, she is calling her mother. She will call back and let us know the mortuary to send her father to.
--- NOTE | 2021-01-19 20:45 | NUR ---
Patient to [facility]. No belongings.
== END 2021-01-19 20:59 | DRG 207 ==
LOC: ER 07:52 → ED HOLD 12:37 → ORTHO 4S 22:09 → CICU 2S 01-02 19:10
PROVIDERS: ADMIT Family Medicine; ATTEND Family Medicine
PROC: XW033E5 Introduction of Remdesivir Anti-infective into Peripheral Vein, Percutaneous Approach, New Technology Group 5 (ICD-10-PCS; 2020-12-29)
PROC: B32T1ZZ Computerized Tomography (CT Scan) of Left Pulmonary Artery using Low Osmolar Contrast (ICD-10-PCS; 2020-12-29)
PROC: B3201ZZ Computerized Tomography (CT Scan) of Thoracic Aorta using Low Osmolar Contrast (ICD-10-PCS; 2020-12-29)
PROC: B32S1ZZ Computerized Tomography (CT Scan) of Right Pulmonary Artery using Low Osmolar Contrast (ICD-10-PCS; 2020-12-29)
PROC: B4201ZZ Computerized Tomography (CT Scan) of Abdominal Aorta using Low Osmolar Contrast (ICD-10-PCS; 2020-12-29)
PROC: B4241ZZ Computerized Tomography (CT Scan) of Superior Mesenteric Artery using Low Osmolar Contrast (ICD-10-PCS; 2020-12-29)
PROC: B4281ZZ Computerized Tomography (CT Scan) of Bilateral Renal Arteries using Low Osmolar Contrast (ICD-10-PCS; 2020-12-29)
PROC: B42C1ZZ Computerized Tomography (CT Scan) of Pelvic Arteries using Low Osmolar Contrast (ICD-10-PCS; 2020-12-29)
PROC: B42H1ZZ Computerized Tomography (CT Scan) of Bilateral Lower Extremity Arteries using Low Osmolar Contrast (ICD-10-PCS; 2020-12-29)
PROC: B4211ZZ Computerized Tomography (CT Scan) of Celiac Artery using Low Osmolar Contrast (ICD-10-PCS; 2020-12-29)
PROC: 5A0935A Assistance with Respiratory Ventilation, Less than 24 Consecutive Hours, High Flow/Velocity Cannula (ICD-10-PCS; 2020-12-30)
PROC: 5A0945A Assistance with Respiratory Ventilation, 24-96 Consecutive Hours, High Flow/Velocity Cannula (ICD-10-PCS; 2020-12-31)
PROC: 5A1955Z Respiratory Ventilation, Greater than 96 Consecutive Hours (ICD-10-PCS; principal; 2021-01-02)
PROC: 0BH17EZ Insertion of Endotracheal Airway into Trachea, Via Natural or Artificial Opening (ICD-10-PCS; 2021-01-02)
PROC: 5A09357 Assistance with Respiratory Ventilation, Less than 24 Consecutive Hours, Continuous Positive Airway Pressure (ICD-10-PCS; 2021-01-02)
PROC: 02HV33Z Insertion of Infusion Device into Superior Vena Cava, Percutaneous Approach (ICD-10-PCS; 2021-01-02)
PROC: 02HV33Z Insertion of Infusion Device into Superior Vena Cava, Percutaneous Approach (ICD-10-PCS; 2021-01-08)
PROC: B548ZZA Ultrasonography of Superior Vena Cava, Guidance (ICD-10-PCS; 2021-01-08)
PROC: 02HV33Z Insertion of Infusion Device into Superior Vena Cava, Percutaneous Approach (ICD-10-PCS; 2021-01-16)
PROC: B548ZZA Ultrasonography of Superior Vena Cava, Guidance (ICD-10-PCS; 2021-01-16)
DX: U07.1 COVID-19 (principal); J12.82 Pneumonia due to coronavirus disease 2019; I26.93 Single subsegmental thrombotic pulmonary embolism without acute cor pulmonale; J80 Acute respiratory distress syndrome; R65.21 Severe sepsis with septic shock; A41.1 Sepsis due to other specified staphylococcus; J44.1 Chronic obstructive pulmonary disease with (acute) exacerbation; J44.0 Chronic obstructive pulmonary disease with (acute) lower respiratory infection; Z99.11 Dependence on respirator [ventilator] status; E87.0 Hyperosmolality and hypernatremia; E87.3 Alkalosis; R29.6 Repeated falls; M54.9 Dorsalgia, unspecified; R00.0 Tachycardia, unspecified; F15.10 Other stimulant abuse, uncomplicated; F41.9 Anxiety disorder, unspecified; N28.89 Other specified disorders of kidney and ureter; E87.6 Hypokalemia; D72.810 Lymphocytopenia; Z66 Do not resuscitate; I48.0 Paroxysmal atrial fibrillation; K59.00 Constipation, unspecified; Z51.5 Encounter for palliative care; Z59.00 Homelessness unspecified; Z86.73 Personal history of transient ischemic attack (TIA), and cerebral infarction without residual deficits; Z71.51 Drug abuse counseling and surveillance of drug abuser; Z78.1 Physical restraint status
CPT/HCPCS: 36415; 36573; 36600; 71045; 71275; 74018; 74177; 80048; 80053; 80202; 80305; 81001; 82140; 82803; 82948; 83036; 83605; 83735; 84100; 84134; 84145; 84439; 84443; 84478; 85007; 85008; 85018; 85025; 85379; 85610; 85730; 86140; 87040; 87070; 87077; 87081; 87186; 87635; 92508; 92616; 93005; 94003; 94660; 94760; 94799; 96374; 96375; 97110; 97161; 97530; 99291; C9113; C9803; G0378; J0153; J0171; J0456; J0692; J0696; J1100; J1630; J1650; J1815; J1940; J2060; J2212; J2248; J2250; J2270; J2704; J2920; J2930; J3010; J3370; J3475; J3480; J3490; J7030; J7050; J7060; J7131; P9045; P9047; Q9967